=== PATIENT | female | born 1950 | race Caucasian/White ===

== ENCOUNTER → 2017-04-13 | Day surgery (SDC) | payer OTHER, MEDICARE ==
--- NOTE | 2017-04-14 13:44 | PATH ---
Cytology Non-Gynecological Report Patient Name: FARSHAD COLES [facility]. Rec. #: [id number] /Age/Gender: 1950 (Age: 66) / F Account: [id number] Location: RADIOLOGY Taken: 04/13/2017 Received: 04/13/2017 Reported: 04/14/2017 Physicians: Carl Blandon M.D. Specimen(s) Received LEFT THYROID FNA Clinical History Left thyroid nodule, 5.62 x 4.06 x 4.12 cm Final Diagnosis THYROID GLAND, LEFT LOBE, US GUIDED FINE NEEDLE ASPIRATION BIOPSY: SATISFACTORY FOR EVALUATION. NO MALIGNANT CELLS IDENTIFIED. CONSISTENT WITH NODULAR HYPERPLASIA (BETHESDA CATEGOY II, BENIGN), SEE COMMENT. Comment: The smears and the cell block show clusters of bland appearing follicular epithelial cells arranged in mixed macro- and micro-follicles and flat sheets. Occasional macrophages are present, suggestive of cystic change. Colloid is present. Electronically Signed Rio Fay M.D. Gross Description Received are four air dried smears, four smears in 95% alcohol, and 20 cc of bloody fluid in formalin. Four diff-quik stained slides, four Pap stained slides and one cell block are made.
== END | disposition home or self-care (01) ==
LOC: JRADIR 08:21
PROVIDERS: ATTEND Internal Medicine Endocrinology, Diabetes & Metabolism
PROC: 0G9K3ZX Drainage of Thyroid Gland, Percutaneous Approach, Diagnostic (ICD-10-PCS; principal; 2017-04-13)
PROC: BG44ZZZ Ultrasonography of Thyroid Gland (ICD-10-PCS; 2017-04-13)
DX: E04.1 Nontoxic single thyroid nodule (principal)
CPT/HCPCS: 76942; 88173; 88305-TC

== ENCOUNTER 2017-12-22 05:15 | Day surgery (SDC) | payer OTHER, MEDICARE ==
[2017-12-13 08:20] VITALS: BMI 31.4
[2017-12-22] MEDS ORDERED: PROPOFOL 20 ML ONE (10:05)
[2017-12-22] MEDS ORDERED: MIDAZOLAM HCL 2 MG/2 ML SINGLE DOSE VIAL ONE (10:05)
[2017-12-22] MEDS ORDERED: ROCURONIUM BROMIDE 50 MG/5 ML VIAL ONE (10:05)
[2017-12-22] MEDS ORDERED: LIDOCAINE HCL/PF 2% SDV 5ML VIAL ONE (10:06)
--- NOTE | 2017-12-22 10:10 | EKG ---
Test Reason : Blood Pressure : / mmHG Vent. Rate : 087 BPM Atrial Rate : 087 BPM P-R Int : 168 ms QRS Dur : 100 ms QT Int : 376 ms P-R-T Axes : 071 017 078 degrees QTc Int : 452 ms NORMAL SINUS RHYTHM WITH SINUS ARRHYTHMIA CANNOT RULE OUT ANTERIOR INFARCT , AGE UNDETERMINED ABNORMAL ECG NO PREVIOUS ECGS AVAILABLE Confirmed by BALJIT ACOSTA MD ([id number]) on 12/22/2017 10:10:31 AM Referred By: SURENDRA FARR Confirmed By:BALJIT ACOSTA MD
[2017-12-22] MEDS ORDERED: ONDANSETRON 4 MG/2 ML VIAL IVPUSH PRN (10:11)
[2017-12-22] MEDS ORDERED: PROMETHAZINE HCL 25 MG/1 ML VIAL IVPB PRN (10:11)
[2017-12-22] MEDS ORDERED: LACTATED RINGERS SOLUTION 1,000 ML IV SCH (10:15)
[2017-12-22] MEDS ORDERED: SUCCINYLCHOLINE CHLORIDE 200 MG/10 ML VIAL ONE (10:23)
[2017-12-22] MEDS ORDERED: ceFAZolin SODIUM 1 GM VIAL ONE (10:35)
[2017-12-22] MEDS ORDERED: DEXAMETHASONE SOD PHOSPHATE 4 MG/1 ML VIAL ONE (10:35)
[2017-12-22] MEDS ORDERED: ceFAZolin SODIUM 1 GM VIAL IVPB ONE (10:39)
[2017-12-22] MEDS ORDERED: BUPIVACAINE HCL/PF (5 MG/ML) 30 ML VIAL IJ ONE (10:40)
[2017-12-22] MEDS ORDERED: LIDOCAINE HCL 1%, 10 MG/ML (20ML VIAL) PNB ONE (10:40)
[2017-12-22] MEDS ORDERED: LIDOCAINE 1%/EPI 1:100000 (20 ML MULTI DOSE VIAL) ONE (10:50)
[2017-12-22] MEDS ORDERED: BUPIVACAINE HCL/PF 0.25% (2.5MG/ML) 10 ML VIAL ONE (10:50)
[2017-12-22] MEDS ORDERED: MICROFIBRILLAR COLLAGEN 1 GM EACH ONE (11:38)
--- NOTE | 2017-12-22 12:04 | OP ---
Operative Note - Note: Operative Date: 12/22/17 Pre-Operative Diagnosis: Thyroid nodules Operation: Left hemithyroidectomy and Right partial thyroid lobe removal Anesthesia: General Estimated Blood Loss (mls): 20 Fluid Volume Replaced (mls): 700 Operative Report Dictated: Yes
--- NOTE | 2017-12-22 12:06 | SURG ---
Surgery Public Address Technician Note Public Address Technician: Bill Portillo PA-C Date of Service: 12/22/17 Diagnosis: Thyroid nodules Procedure: Left hemithyroidectomy and Right partial thyroid lobe resection I was present for the entirety of the operative procedure. For further detail, please refer to operative report.
--- NOTE | 2017-12-22 13:46 | OP ---
DATE OF OPERATION: 12/22/2017 SURGICAL ATTENDING: Surendra Farr MD PREOPERATIVE DIAGNOSIS: Thyroid nodules. POSTOPERATIVE DIAGNOSIS: Thyroid nodules. ANESTHESIA: General endotracheal. PROCEDURE: 1. Left hemithyroidectomy and isthmusectomy. 2. Right partial thyroid lobectomy (medial nodule). DESCRIPTION OF PROCEDURE: The patient was taken into the operating room, placed in a supine position, endotracheally intubated, nerve monitors were placed, eyes were protected. Neck ultrasound was performed showing a large left thyroid mass, a moderately enlarged thyroid isthmus nodule, and a medial right thyroid lobe nodule. No lymphadenopathy was identified. The neck was then prepped and draped in the usual sterile fashion. A 6-cm horizontal skin incision was marked out. Lidocaine with epinephrine mixed with Marcaine was injected. A 6-cm incision was then made carried down through subcutaneous tissues and platysma. Subplatysmal flaps were raised superiorly and inferiorly, and flap hooks were placed for exposure. The median raphe was incised, and the strap muscles were elevated on the left side and partially on the right side. The recurrent laryngeal nerve, superior laryngeal nerve, and parathyroid glands were preserved. The superior, posterior, and inferior attachments of the thyroid gland were transected. The isthmus nodule was dissected free from the surrounding tissues with electrocautery. The isthmus was transected on the right side, and this way, the left thyroid lobe and isthmus were removed en bloc. The specimen was examined and found to have no parathyroid tissue. It was then handed off to Pathology for evaluation. The right side was examined, and a medial nodule was identified on the right lobe, which was palpable. The remainder of the lobe appeared normal. Using a LigaSure, the medial aspect of the right thyroid lobe was transected and removed from the remainder of the right thyroid lobe. This was sent to Pathology for evaluation, as well. Hemostasis was achieved with electrocautery. Valsalva maneuver was performed showing no bleeding. Avitene was placed. The wound was then closed in 3 layers. Sterile dressings were placed. The patient was then awakened, extubated, and taken to recovery in stable condition. Dr. Farr, the attending surgeon, was present throughout the entire procedure. SURENDRA FARR M.D. [id number]
[2017-12-22] MEDS ORDERED: oxyCODONE HCL 5 MG TABLET ONE (14:36)
[2017-12-22 17:34] VITALS: BP 133/67; PULSE 90; TEMP 98
--- NOTE | 2017-12-28 09:22 | PATH ---
Surgical Pathology Report Patient Name: FARSHAD COLES [facility]. Rec. #: [id number] /Age/Gender: 1950 (Age: 67) / F Account: [id number] Location: [facility] SURGICAL Taken: 12/22/2017 Received: 12/25/2017 Reported: 12/28/2017 Physicians: Gavin Lopez M.D. Specimen(s) Received A: MEDIAL RIGHT THYROID LOBE B: LEFT THYROID LOBE AND ISTHMUS Clinical History Thyroid nodule Final Diagnosis A. THYROID, MEDIAL, RIGHT LOBE, PARTIAL THYROIDECTOMY: BENIGN THYROID TISSUE WITH MULTINODULAR HYPERPLASIA AND FOCAL MICROCALCIFICATIONS. B. THYROID, LEFT LOBE AND ISTHMUS, HEMITHYROIDECTOMY: BENIGN THYROID TISSUE WITH MULTINODULAR HYPERPLASIA, HEMORRHAGE, FOCAL FIBROSIS, CYSTIC AND REACTIVE CHANGES, FEW LYMPHOID AGGREGATES, AND RARE MICROCALCIFICATIONS. Comment: The presence of lymphoid aggregates raise the possibility of Chronic lymphocytic thyroiditis. Suggest clinical, radiologic, and serologic correlation. Electronically Signed Katarina Suh M.D. Gross Description A. Received in formalin labeled "medial right thyroid lobe" is a 2 g gilliland-gunter nodular thyroid tissue measuring 2.5 x 1.3 x 1.2 cm. The specimen is unoriented. The entire specimen is inked in blue. Cut section shows a white-gunter circumscribed nodule measuring 1.3 x 2.2 cm, which abuts the inked margins. The specimen is serially and sequentially submitted in 4 cassettes. B. Received in formalin labeled "left thyroid lobe and isthmus" is a 65 g thyroid tissue. The outer surface is gunter to keith and shaggy. The isthmus measures 5 x 4 x 1.2 cm, while the left lobe measures 4.3 x 4 x 3 cm. The outer surface is inked in blue. Sectioning shows an encapsulated isthmus nodule which measures 2.2 cm in greatest dimension, which abuts the inked margin. Sectioning shows abundant large heterogenous nodules measuring up to 4.3 cm in greatest dimension. Some of which display solid gunter parenchyma, focal areas of hemorrhage and calcification. No normal thyroid parenchyma is identified. Clarity Developer sections are submitted in 19 cassettes as follows: B1-B6: Isthmic nodule, B7-B19- left thyroid. LYNETTE/12/25/2017 phuong12/25/2017
== END 2017-12-22 16:45 | disposition home or self-care (01) ==
LOC: JASU-SURG 05:15
PROVIDERS: ATTEND Surgery
PROC: 0GBH0ZZ Excision of Right Thyroid Gland Lobe, Open Approach (ICD-10-PCS; 2017-12-22)
PROC: 0GBJ0ZZ Excision of Thyroid Gland Isthmus, Open Approach (ICD-10-PCS; 2017-12-22)
PROC: 0GBG0ZZ Excision of Left Thyroid Gland Lobe, Open Approach (ICD-10-PCS; principal; 2017-12-22 10:00)
DX: E04.1 Nontoxic single thyroid nodule (principal)
CPT/HCPCS: 82962; 88307-TC; 93005; 93010; 94760

== ENCOUNTER 2021-08-17 10:18 | Emergency (ER) | payer OTHER ==
[2021-08-17] MEDS ORDERED: HEPARIN NA (PORCINE) 5,000 UNITS/ML 1ML VIAL ONE (10:30)
[2021-08-17] MEDS ORDERED: HEPARIN INFUSION - 25,000 UNITS/500 ML INFUS.BAG IVPB ONE (10:30)
[2021-08-17] MEDS ORDERED: PROPOFOL 1,000,000 MCG/100 ML VIAL ONE ×3 (10:34→21:42)
[2021-08-17] MEDS ORDERED: ASPIRIN 300 MG SUPP.RECT PR ONE (10:35)
[2021-08-17] MEDS ORDERED: ASPIRIN 300 MG SUPP.RECT RC ONE (10:35)
[2021-08-17] MEDS ORDERED: ETOMIDATE 40 MG/20 ML VIAL IVPUSH ONE (10:41)
[2021-08-17] MEDS ORDERED: ROCURONIUM BROMIDE 50 MG/5 ML VIAL IVPUSH ONE (10:41)
[2021-08-17] MEDS ORDERED: PROPOFOL 1,000,000 MCG/100 ML VIAL IVPB SCH (10:45)
[2021-08-17 11:14] LABS: BASO % 0.7 % (0-2.0); HEMATOCRIT 38.8 % (32.4-45.2); HEMOGLOBIN 11.8 GM/dL (10.7-15.3); LYMPH % 37.9 % (8-40); MCH 25.9 pg (25.7-33.7); MCHC 30.5 g/dl (32.0-36.0); MEAN CELL VOLUME 84.8 fl (80-96); MEAN PLT VOLUME 9.3 fl (7.5-11.1); MONO % 4.6 % (3.8-10.2); NEUT % 55.8 % (42.8-82.8); PLATELET COUNT 321 10^3/uL (134-434); RBC 4.57 M/mm3 (3.60-5.2); RDW 13.8 % (11.6-15.6); WHITE BLOOD COUNT 15.6 K/mm3 (4.0-10.0)
[2021-08-17 11:24] VITALS: BMI 33.7
[2021-08-17 11:38] LABS: CHLORIDE 100 mmol/L (98-107); SODIUM 136 mmol/L (136-145)
[2021-08-17 11:39] LABS: CALCIUM 8.9 mg/dL (8.5-10.1)
[2021-08-17 11:40] LABS: ANION GAP 9 MMOL/L (8-16); BLOOD UREA NITROGEN 29.9 mg/dL (7-18); CO2 27 mmol/L (21-32)
[2021-08-17 11:43] LABS: CREATININE 1.8 mg/dL (0.55-1.3); GLUCOSE,RANDOM 236 mg/dL (74-106); SGOT/AST 102 U/L (15-37); SGPT/ALT 50 U/L (13-61)
[2021-08-17 11:45] LABS: BILIRUBIN,TOTAL 0.5 mg/dL (0.2-1); TOT PROT 7.4 g/dl (6.4-8.2)
[2021-08-17 11:46] LABS: ALK PHOS 111 U/L (45-117)
[2021-08-17] MEDS ORDERED: PROPOFOL 200 MG/20 ML VIAL IVPUSH ONE (12:30)
[2021-08-17 16:11] LABS: VENOUS BASE EXCESS -1.2 mmol/L (-2-2); VENOUS O2 SATURATION 58.1 % (70-80); VENOUS PCO2 61.3 mmHg (38-52); VENOUS PH 7.262 (7.310-7.410)
[2021-08-17 18:47] VITALS: TEMP 98.6
[2021-08-17 22:30] VITALS: PULSE 77
[2021-08-17 23:13] VITALS: BP 149/67
== END 2021-08-17 22:27 | disposition short-term general hospital (02) ==
LOC: JER 10:18
PROC: 3E033GC Introduction of Other Therapeutic Substance into Peripheral Vein, Percutaneous Approach (ICD-10-PCS; principal; 2021-08-17)
PROC: 3E033GC Introduction of Other Therapeutic Substance into Peripheral Vein, Percutaneous Approach (ICD-10-PCS; 2021-08-17)
DX: I46.9 Cardiac arrest, cause unspecified (principal)
CPT/HCPCS: 36415; 70450-TC; 71045-TC-FY; 72125-TC; 73030-TC-RT-FY; 80053; 82550; 82553; 82803; 84484; 85025; 93005; 93010; 99291; 99292; C9803; U0003; U0005

== ENCOUNTER 2022-05-26 14:29 | Inpatient (IN) | payer OTHER ==
[2022-05-26] MEDS ORDERED: PIPERACILLIN/TAZOB 4.5 GM 4.5 GM in DEXTROSE 5%-WATER 100 ML IVPB ONE (15:50)
[2022-05-26] MEDS ORDERED: VANCOMYCIN 1 GM in D5W (PRE-DOCKED) 1,000 MG/250 ML IVPB ONE (15:50)
[2022-05-26] MEDS ORDERED: ACETAMINOPHEN 1000 MG/100 ML BAG IVPB ONE (15:51)
[2022-05-26] MEDS ORDERED: VANCOMYCIN/WATER FOR INJ (PEG) 1,000 MG/200 ML BAG IVPB ONE (16:13)
[2022-05-26] MEDS ORDERED: ACETAMINOPHEN INJECTION 100 ML IVPB ONE (16:13)
[2022-05-26] MEDS ORDERED: PIPERACILLIN/TAZOB 4.5 GM 4.5 GM/100 ML BAG IVPB ONE (16:13)
[2022-05-26 16:37] LABS: BASO % 0.5 % (0-2.0); EOS % 1.1 % (0-4.5); HEMATOCRIT 34.3 % (32.4-45.2); HEMOGLOBIN 11.1 GM/dL (10.7-15.3); LYMPH % 24.3 % (8-40); MCH 26.7 pg (25.7-33.7); MCHC 32.3 g/dl (32.0-36.0); MEAN CELL VOLUME 82.7 fl (80-96); MEAN PLT VOLUME 8.2 fl (7.5-11.1); MONO % 6.2 % (3.8-10.2); NEUT % 67.9 % (42.8-82.8); PLATELET COUNT 230 10^3/uL (134-434); RBC 4.14 M/mm3 (3.60-5.2); RDW 15.2 % (11.6-15.6); WHITE BLOOD COUNT 8.1 K/mm3 (4.0-10.0)
[2022-05-26 16:54] LABS: ALBUMIN 3.1 g/dl (3.4-5.0); BLOOD UREA NITROGEN 40.9 mg/dL (7-18); CALCIUM 9.4 mg/dL (8.5-10.1); MAGNESIUM 2.4 mg/dL (1.8-2.4)
[2022-05-26 16:56] LABS: CREATININE 1.9 mg/dL (0.55-1.3)
[2022-05-26 16:59] LABS: BILIRUBIN,TOTAL 0.2 mg/dL (0.2-1); TOT PROT 6.9 g/dl (6.4-8.2)
[2022-05-26 17:55] LABS: ERYTHROCYTE SEDIMENTATION RATE 78 mm/hr (0-30)
[2022-05-26] MEDS ORDERED: FUROSEMIDE 40 MG/4 ML INJECTABLE VIAL IVPUSH ONE (18:06)
[2022-05-26] MEDS ORDERED: FUROSEMIDE 40 MG/4 ML INJECTABLE VIAL ONE (18:32)
[2022-05-26] MEDS ORDERED: PIPERACILLIN/TAZOB 2.25 GM 2.25 GM in DEXTROSE 5%-WATER - 50 ML IVPB SCH (21:00)
[2022-05-26] MEDS ORDERED: PATIENT'S OWN MEDICATION (NON-FORMULARY) (Gabapentin [Neurontin] 600 MG Tablet) PO SCH (22:00)
[2022-05-26] MEDS: INSULIN SLIDING SCALE (NOVOLOG) 1 VIAL SQ SCH (22:26)
[2022-05-26] MEDS: hydrALAZINE HCL 50 MG TABLET (FP) PO SCH (23:12)
[2022-05-26] MEDS: GABAPENTIN 300 MG CAPSULE PO SCH (23:15)
[2022-05-27] MEDS: PIPERACILLIN/TAZOB 2.25 GM 2.25 GM in DEXTROSE 5%-WATER - 50 ML IVPB SCH ×2 (02:11→10:02)
[2022-05-27] MEDS ORDERED: PIPERACILLIN/TAZOB 2.25 GM 2.25 GM in DEXTROSE 5%-WATER - 50 ML IVPB SCH (03:00)
[2022-05-27] MEDS: hydrALAZINE HCL 50 MG TABLET (FP) PO SCH ×3 (06:14→21:45)
[2022-05-27] MEDS: GABAPENTIN 300 MG CAPSULE PO SCH ×3 (06:14→21:46)
[2022-05-27] MEDS ORDERED: INSULIN (NOVOLOG) ASPART 100 UNITS/ML 10ML VIAL ONE ×3 (07:25→11:51)
[2022-05-27] MEDS: INSULIN SLIDING SCALE (NOVOLOG) 1 VIAL SQ SCH ×5 (07:38→22:24)
[2022-05-27] MEDS: LEVOTHYROXINE NA 25 MCG TABLET (FP) PO SCH (07:39)
[2022-05-27] MEDS: CARVEDILOL 25 MG TABLET (FP) PO SCH ×2 (10:01→21:46)
[2022-05-27] MEDS: TORSEMIDE 20 MG TABLET (FP) PO SCH (10:01)
[2022-05-27] MEDS: cloNIDine HCL 0.1 MG TABLET PO SCH ×2 (10:01→21:45)
[2022-05-27] MEDS: PATIENT'S OWN MEDICATION (NON-FORMULARY) (Empagliflozin [Jardiance] 10 MG Tablet) PO SCH (10:10)
[2022-05-27 10:21] LABS: BASO % 0.5 % (0-2.0); EOS % 1.4 % (0-4.5); HEMATOCRIT 31.9 % (32.4-45.2); HEMOGLOBIN 10.3 GM/dL (10.7-15.3); LYMPH % 28.9 % (8-40); MCH 26.7 pg (25.7-33.7); MCHC 32.3 g/dl (32.0-36.0); MEAN CELL VOLUME 82.7 fl (80-96); MONO % 7.2 % (3.8-10.2); PLATELET COUNT 219 10^3/uL (134-434); RBC 3.85 M/mm3 (3.60-5.2); RDW 15.2 % (11.6-15.6); WHITE BLOOD COUNT 7.1 K/mm3 (4.0-10.0)
[2022-05-27 10:46] LABS: CALCIUM 8.9 mg/dL (8.5-10.1)
[2022-05-27 10:48] LABS: BLOOD UREA NITROGEN 42.3 mg/dL (7-18)
[2022-05-27] MEDS: INSULIN DEGLUDEC 100 UNIT/ML SQ SCH ×2 (11:50→22:23)
[2022-05-27] MEDS: CEFAZOLIN SODIUM 2 GM in DEXTROSE 5%-WATER 100 ML IVPB SCH (21:46)
[2022-05-27] MEDS: INSULIN (LEVEMIR) 100 UNITS/ML UNITS SQ SCH (22:00)
[2022-05-28] MEDS: INSULIN SLIDING SCALE (NOVOLOG) 1 VIAL SQ SCH ×4 (06:42→21:07)
[2022-05-28] MEDS: hydrALAZINE HCL 50 MG TABLET (FP) PO SCH ×3 (06:43→21:05)
[2022-05-28] MEDS: LEVOTHYROXINE NA 25 MCG TABLET (FP) PO SCH (06:44)
[2022-05-28] MEDS: GABAPENTIN 300 MG CAPSULE PO SCH ×3 (06:44→21:06)
[2022-05-28 09:00] LABS: BASO % 0.2 % (0-2.0); EOS % 1.3 % (0-4.5); HEMATOCRIT 32.1 % (32.4-45.2); HEMOGLOBIN 10.2 GM/dL (10.7-15.3); LYMPH % 24.4 % (8-40); MCH 26.2 pg (25.7-33.7); MCHC 31.8 g/dl (32.0-36.0); MEAN CELL VOLUME 82.3 fl (80-96); MEAN PLT VOLUME 8.1 fl (7.5-11.1); NEUT % 67.1 % (42.8-82.8); PLATELET COUNT 219 10^3/uL (134-434); RDW 14.6 % (11.6-15.6); WHITE BLOOD COUNT 7.7 K/mm3 (4.0-10.0)
[2022-05-28] MEDS ORDERED: CEFAZOLIN SODIUM 2 GM VIAL ONE (09:58)
[2022-05-28] MEDS: TORSEMIDE 20 MG TABLET (FP) PO SCH (10:04)
[2022-05-28] MEDS: CEFAZOLIN SODIUM 2 GM in DEXTROSE 5%-WATER 100 ML IVPB SCH ×2 (10:04→21:08)
[2022-05-28] MEDS: cloNIDine HCL 0.1 MG TABLET PO SCH ×2 (10:05→21:05)
[2022-05-28] MEDS: CARVEDILOL 25 MG TABLET (FP) PO SCH ×2 (10:05→21:05)
[2022-05-28] MEDS: PATIENT'S OWN MEDICATION (NON-FORMULARY) (Empagliflozin [Jardiance] 10 MG Tablet) PO SCH (10:05)
[2022-05-28 10:07] LABS: CALCIUM 9.5 mg/dL (8.5-10.1)
[2022-05-28] MEDS: INSULIN DEGLUDEC 100 UNIT/ML SQ SCH ×2 (10:07→21:26)
[2022-05-28 10:08] LABS: ALBUMIN 2.9 g/dl (3.4-5.0); BLOOD UREA NITROGEN 46.6 mg/dL (7-18)
[2022-05-28 10:11] LABS: CREATININE 2.1 mg/dL (0.55-1.3)
[2022-05-28 10:12] LABS: BILIRUBIN,TOTAL 0.2 mg/dL (0.2-1); TOT PROT 6.3 g/dl (6.4-8.2)
[2022-05-28] MEDS: INSULIN (LEVEMIR) 100 UNITS/ML UNITS SQ SCH ×3 (11:27→21:06)
[2022-05-28] MEDS ORDERED: INSULIN (NOVOLOG) ASPART 100 UNITS/ML 10ML VIAL ONE ×2 (17:08→20:50)
[2022-05-29] MEDS: hydrALAZINE HCL 50 MG TABLET (FP) PO SCH ×3 (05:46→21:27)
[2022-05-29] MEDS: GABAPENTIN 300 MG CAPSULE PO SCH (05:47)
[2022-05-29] MEDS: LEVOTHYROXINE NA 25 MCG TABLET (FP) PO SCH (06:15)
[2022-05-29] MEDS: INSULIN (LEVEMIR) 100 UNITS/ML UNITS SQ SCH ×2 (06:15→21:34)
[2022-05-29] MEDS: INSULIN SLIDING SCALE (NOVOLOG) 1 VIAL SQ SCH ×4 (06:15→21:43)
[2022-05-29] MEDS ORDERED: INSULIN (NOVOLOG) ASPART 100 UNITS/ML 10ML VIAL ONE (06:18)
[2022-05-29] MEDS: cloNIDine HCL 0.1 MG TABLET PO SCH ×2 (10:51→21:26)
[2022-05-29] MEDS: CARVEDILOL 25 MG TABLET (FP) PO SCH ×2 (10:51→21:27)
[2022-05-29] MEDS: INSULIN DEGLUDEC 100 UNIT/ML SQ SCH ×2 (10:52→21:31)
[2022-05-29] MEDS: TORSEMIDE 20 MG TABLET (FP) PO SCH (10:52)
[2022-05-29] MEDS: PATIENT'S OWN MEDICATION (NON-FORMULARY) (Empagliflozin [Jardiance] 10 MG Tablet) PO SCH (10:52)
[2022-05-29] MEDS: CEFAZOLIN SODIUM 2 GM in DEXTROSE 5%-WATER 100 ML IVPB SCH ×2 (10:53→21:27)
[2022-05-29] MEDS: MUPIROCIN CA 2% TOPICAL CREAM 15 GM TUBE TP SCH ×2 (14:06→21:27)
[2022-05-29] MEDS: COLLAGENASE CLOSTRIDIUM HIST. 30 GRAMS TUBE TP SCH (14:06)
[2022-05-29] MEDS: GABAPENTIN 100 MG CAPSULE PO SCH (21:27)
[2022-05-29] MEDS ORDERED: GABAPENTIN 100 MG CAPSULE PO SCH (22:00)
[2022-05-29] MEDS: INSULIN (NOVOLOG) ASPART 100 UNITS/ML 10ML VIAL SQ SCH (22:25)
[2022-05-30] MEDS: INSULIN (NOVOLOG) ASPART 100 UNITS/ML 10ML VIAL SQ SCH ×4 (06:05→21:17)
[2022-05-30] MEDS: INSULIN (LEVEMIR) 100 UNITS/ML UNITS SQ SCH ×2 (06:06→21:17)
[2022-05-30] MEDS: hydrALAZINE HCL 50 MG TABLET (FP) PO SCH ×3 (06:07→21:16)
[2022-05-30] MEDS: LEVOTHYROXINE NA 25 MCG TABLET (FP) PO SCH (06:12)
[2022-05-30] MEDS: TORSEMIDE 20 MG TABLET (FP) PO SCH (09:38)
[2022-05-30] MEDS: CARVEDILOL 25 MG TABLET (FP) PO SCH ×2 (09:38→21:16)
[2022-05-30] MEDS: CEFAZOLIN SODIUM 2 GM in DEXTROSE 5%-WATER 100 ML IVPB SCH (09:44)
[2022-05-30] MEDS: cloNIDine HCL 0.1 MG TABLET PO SCH ×2 (09:45→21:17)
[2022-05-30] MEDS: PATIENT'S OWN MEDICATION (NON-FORMULARY) (Empagliflozin [Jardiance] 10 MG Tablet) PO SCH (09:46)
[2022-05-30] MEDS: INSULIN DEGLUDEC 100 UNIT/ML SQ SCH ×2 (09:51→21:17)
[2022-05-30] MEDS: MUPIROCIN CA 2% TOPICAL CREAM 15 GM TUBE TP SCH ×2 (09:52→21:18)
[2022-05-30] MEDS: COLLAGENASE CLOSTRIDIUM HIST. 30 GRAMS TUBE TP SCH (09:52)
[2022-05-30 10:54] LABS: ALBUMIN 3.1 g/dl (3.4-5.0); BLOOD UREA NITROGEN 42.6 mg/dL (7-18)
[2022-05-30 10:57] LABS: BILIRUBIN,TOTAL 0.3 mg/dL (0.2-1); TOT PROT 6.8 g/dl (6.4-8.2)
[2022-05-30] MEDS ORDERED: INSULIN (NOVOLOG) ASPART 100 UNITS/ML 10ML VIAL ONE ×2 (11:17→16:36)
[2022-05-30] MEDS: CLINDAMYCIN 600MG PREMIX IVPB 600 MG/50 ML BAG IVPB SCH (17:20)
[2022-05-30] MEDS: GABAPENTIN 100 MG CAPSULE PO SCH (21:16)
[2022-05-30] MEDS: CEFEPIME 1 GM in DEXTROSE 5%-WATER 100 ML IVPB SCH (21:18)
[2022-05-31] MEDS: CLINDAMYCIN 600MG PREMIX IVPB 600 MG/50 ML BAG IVPB SCH ×3 (01:17→17:07)
[2022-05-31] MEDS: hydrALAZINE HCL 50 MG TABLET (FP) PO SCH ×3 (05:45→21:01)
[2022-05-31] MEDS: LEVOTHYROXINE NA 25 MCG TABLET (FP) PO SCH (06:31)
[2022-05-31] MEDS: INSULIN (LEVEMIR) 100 UNITS/ML UNITS SQ SCH ×2 (06:32→21:01)
[2022-05-31] MEDS: INSULIN (NOVOLOG) ASPART 100 UNITS/ML 10ML VIAL SQ SCH ×4 (06:32→21:01)
[2022-05-31] MEDS: TORSEMIDE 20 MG TABLET (FP) PO SCH (09:55)
[2022-05-31] MEDS: CARVEDILOL 25 MG TABLET (FP) PO SCH ×2 (09:55→21:07)
[2022-05-31] MEDS: cloNIDine HCL 0.1 MG TABLET PO SCH ×2 (09:55→21:08)
[2022-05-31] MEDS: CEFEPIME 1 GM in DEXTROSE 5%-WATER 100 ML IVPB SCH ×2 (09:56→21:02)
[2022-05-31] MEDS: INSULIN DEGLUDEC 100 UNIT/ML SQ SCH ×2 (09:56→21:01)
[2022-05-31] MEDS: PATIENT'S OWN MEDICATION (NON-FORMULARY) (Empagliflozin [Jardiance] 10 MG Tablet) PO SCH (09:57)
[2022-05-31] MEDS ORDERED: INSULIN (NOVOLOG) ASPART 100 UNITS/ML 10ML VIAL ONE (11:37)
[2022-05-31] MEDS: MUPIROCIN CA 2% TOPICAL CREAM 15 GM TUBE TP SCH ×2 (13:37→21:01)
[2022-05-31] MEDS: COLLAGENASE CLOSTRIDIUM HIST. 30 GRAMS TUBE TP SCH (13:37)
[2022-05-31] MEDS: GABAPENTIN 100 MG CAPSULE PO SCH (21:01)
[2022-06-01] MEDS: CLINDAMYCIN 600MG PREMIX IVPB 600 MG/50 ML BAG IVPB SCH ×3 (01:23→17:50)
[2022-06-01] MEDS: hydrALAZINE HCL 50 MG TABLET (FP) PO SCH ×3 (05:51→21:12)
[2022-06-01] MEDS: LEVOTHYROXINE NA 25 MCG TABLET (FP) PO SCH (06:21)
[2022-06-01] MEDS: INSULIN (LEVEMIR) 100 UNITS/ML UNITS SQ SCH ×2 (06:21→21:12)
[2022-06-01] MEDS: INSULIN (NOVOLOG) ASPART 100 UNITS/ML 10ML VIAL SQ SCH ×4 (06:22→21:15)
[2022-06-01 09:23] LABS: ALBUMIN 3.1 g/dl (3.4-5.0); CALCIUM 9.9 mg/dL (8.5-10.1)
[2022-06-01 09:24] LABS: BLOOD UREA NITROGEN 38.7 mg/dL (7-18)
[2022-06-01 09:27] LABS: CREATININE 1.9 mg/dL (0.55-1.3)
[2022-06-01 09:28] LABS: BILIRUBIN,TOTAL 0.3 mg/dL (0.2-1)
[2022-06-01] MEDS: cloNIDine HCL 0.1 MG TABLET PO SCH ×2 (10:45→21:12)
[2022-06-01] MEDS: MUPIROCIN CA 2% TOPICAL CREAM 15 GM TUBE TP SCH ×2 (10:45→21:13)
[2022-06-01] MEDS: CARVEDILOL 25 MG TABLET (FP) PO SCH ×2 (10:46→21:13)
[2022-06-01] MEDS: TORSEMIDE 20 MG TABLET (FP) PO SCH (10:47)
[2022-06-01] MEDS: PATIENT'S OWN MEDICATION (NON-FORMULARY) (Empagliflozin [Jardiance] 10 MG Tablet) PO SCH (10:48)
[2022-06-01] MEDS: INSULIN DEGLUDEC 100 UNIT/ML SQ SCH ×2 (10:49→21:13)
[2022-06-01] MEDS: COLLAGENASE CLOSTRIDIUM HIST. 30 GRAMS TUBE TP SCH (10:51)
[2022-06-01] MEDS: CEFEPIME 1 GM in DEXTROSE 5%-WATER 100 ML IVPB SCH ×2 (12:20→21:22)
[2022-06-01] MEDS ORDERED: INSULIN (NOVOLOG) ASPART 100 UNITS/ML 10ML VIAL ONE (17:11)
[2022-06-01] MEDS: GABAPENTIN 100 MG CAPSULE PO SCH (21:13)
[2022-06-02] MEDS: CLINDAMYCIN 600MG PREMIX IVPB 600 MG/50 ML BAG IVPB SCH ×3 (01:33→17:12)
[2022-06-02] MEDS: hydrALAZINE HCL 50 MG TABLET (FP) PO SCH ×3 (05:56→21:28)
[2022-06-02] MEDS: INSULIN (NOVOLOG) ASPART 100 UNITS/ML 10ML VIAL SQ SCH ×4 (06:10→21:53)
[2022-06-02] MEDS: LEVOTHYROXINE NA 25 MCG TABLET (FP) PO SCH (06:11)
[2022-06-02] MEDS: INSULIN (LEVEMIR) 100 UNITS/ML UNITS SQ SCH ×2 (06:11→21:29)
[2022-06-02] MEDS: cloNIDine HCL 0.1 MG TABLET PO SCH ×2 (09:56→21:34)
[2022-06-02] MEDS: MUPIROCIN CA 2% TOPICAL CREAM 15 GM TUBE TP SCH ×2 (09:56→21:32)
[2022-06-02] MEDS: COLLAGENASE CLOSTRIDIUM HIST. 30 GRAMS TUBE TP SCH (09:57)
[2022-06-02] MEDS: TORSEMIDE 20 MG TABLET (FP) PO SCH (09:57)
[2022-06-02] MEDS: CARVEDILOL 25 MG TABLET (FP) PO SCH ×2 (09:57→21:27)
[2022-06-02] MEDS: INSULIN DEGLUDEC 100 UNIT/ML SQ SCH ×2 (10:10→21:30)
[2022-06-02] MEDS: CEFEPIME 1 GM in DEXTROSE 5%-WATER 100 ML IVPB SCH ×2 (11:14→21:28)
[2022-06-02 11:28] LABS: ALBUMIN 2.7 g/dl (3.4-5.0); BLOOD UREA NITROGEN 41.6 mg/dL (7-18); CALCIUM 8.6 mg/dL (8.5-10.1)
[2022-06-02 11:32] LABS: BILIRUBIN,TOTAL 0.3 mg/dL (0.2-1); TOT PROT 6.2 g/dl (6.4-8.2)
[2022-06-02] MEDS ORDERED: TORSEMIDE 20 MG TABLET (FP) PO ONE (13:25)
[2022-06-02 14:37] VITALS: BMI 37.8
[2022-06-02] MEDS ORDERED: INSULIN (NOVOLOG) ASPART 100 UNITS/ML 10ML VIAL ONE (17:09)
[2022-06-02] MEDS: GABAPENTIN 100 MG CAPSULE PO SCH (21:28)
[2022-06-03] MEDS: CLINDAMYCIN 600MG PREMIX IVPB 600 MG/50 ML BAG IVPB SCH ×2 (01:37→09:47)
[2022-06-03] MEDS: hydrALAZINE HCL 50 MG TABLET (FP) PO SCH ×3 (05:59→21:00)
[2022-06-03] MEDS: INSULIN (NOVOLOG) ASPART 100 UNITS/ML 10ML VIAL SQ SCH ×4 (06:00→21:00)
[2022-06-03] MEDS: LEVOTHYROXINE NA 25 MCG TABLET (FP) PO SCH (06:00)
[2022-06-03] MEDS: INSULIN (LEVEMIR) 100 UNITS/ML UNITS SQ SCH ×2 (06:00→21:00)
[2022-06-03] MEDS: cloNIDine HCL 0.1 MG TABLET PO SCH ×2 (09:47→21:00)
[2022-06-03] MEDS: CEFEPIME 1 GM in DEXTROSE 5%-WATER 100 ML IVPB SCH ×2 (09:47→21:01)
[2022-06-03] MEDS: CARVEDILOL 25 MG TABLET (FP) PO SCH ×2 (09:47→21:00)
[2022-06-03] MEDS: TORSEMIDE 20 MG TABLET (FP) PO SCH (09:47)
[2022-06-03] MEDS: COLLAGENASE CLOSTRIDIUM HIST. 30 GRAMS TUBE TP SCH (09:47)
[2022-06-03] MEDS: MUPIROCIN CA 2% TOPICAL CREAM 15 GM TUBE TP SCH (09:47)
[2022-06-03] MEDS: INSULIN DEGLUDEC 100 UNIT/ML SQ SCH ×2 (09:51→21:00)
[2022-06-03 09:58] LABS: BASO % 0.5 % (0-2.0); EOS % 0.9 % (0-4.5); HEMATOCRIT 31.4 % (32.4-45.2); HEMOGLOBIN 10.4 GM/dL (10.7-15.3); LYMPH % 29.7 % (8-40); MCH 27.1 pg (25.7-33.7); MCHC 33.1 g/dl (32.0-36.0); MEAN CELL VOLUME 81.8 fl (80-96); MEAN PLT VOLUME 7.9 fl (7.5-11.1); MONO % 8.4 % (3.8-10.2); NEUT % 60.5 % (42.8-82.8); PLATELET COUNT 236 10^3/uL (134-434); RBC 3.84 M/mm3 (3.60-5.2); WHITE BLOOD COUNT 8.1 K/mm3 (4.0-10.0)
[2022-06-03 11:08] LABS: ALBUMIN 2.9 g/dl (3.4-5.0); BLOOD UREA NITROGEN 46.3 mg/dL (7-18)
[2022-06-03 11:13] LABS: BILIRUBIN,TOTAL 0.3 mg/dL (0.2-1); TOT PROT 6.8 g/dl (6.4-8.2)
[2022-06-03] MEDS ORDERED: VANCOMYCIN/WATER FOR INJ (PEG) 1,000 MG/200 ML BAG IVPB ONE (15:00)
[2022-06-03] MEDS: HYDROCORTISONE 0.5% TOPICAL CREAM 30 GM TUBE TP SCH (16:00)
[2022-06-03] MEDS: GABAPENTIN 100 MG CAPSULE PO SCH (21:00)
[2022-06-04] MEDS: hydrALAZINE HCL 50 MG TABLET (FP) PO SCH ×3 (05:56→21:51)
[2022-06-04] MEDS: INSULIN (LEVEMIR) 100 UNITS/ML UNITS SQ SCH ×2 (06:14→21:58)
[2022-06-04] MEDS: LEVOTHYROXINE NA 25 MCG TABLET (FP) PO SCH (06:14)
[2022-06-04] MEDS: INSULIN (NOVOLOG) ASPART 100 UNITS/ML 10ML VIAL SQ SCH ×4 (06:14→22:02)
[2022-06-04 09:35] LABS: HEMOGLOBIN 10.8 GM/dL (10.7-15.3); MCHC 31.7 g/dl (32.0-36.0); MEAN PLT VOLUME 8.4 fl (7.5-11.1); PLATELET COUNT 266 10^3/uL (134-434); RBC 4.15 M/mm3 (3.60-5.2); RDW 14.9 % (11.6-15.6); WHITE BLOOD COUNT 8.3 K/mm3 (4.0-10.0)
[2022-06-04] MEDS: TORSEMIDE 20 MG TABLET (FP) PO SCH (09:39)
[2022-06-04] MEDS: CARVEDILOL 25 MG TABLET (FP) PO SCH ×2 (09:39→21:51)
[2022-06-04] MEDS: CEFEPIME 1 GM in DEXTROSE 5%-WATER 100 ML IVPB SCH ×2 (09:39→21:51)
[2022-06-04] MEDS: cloNIDine HCL 0.1 MG TABLET PO SCH ×2 (09:39→21:51)
[2022-06-04] MEDS: HYDROCORTISONE 0.5% TOPICAL CREAM 30 GM TUBE TP SCH (09:39)
[2022-06-04] MEDS: COLLAGENASE CLOSTRIDIUM HIST. 30 GRAMS TUBE TP SCH (09:40)
[2022-06-04] MEDS: INSULIN DEGLUDEC 100 UNIT/ML SQ SCH ×2 (09:40→22:02)
[2022-06-04 10:09] LABS: CALCIUM 9.3 mg/dL (8.5-10.1)
[2022-06-04 10:13] LABS: CREATININE 2.2 mg/dL (0.55-1.3)
[2022-06-04] MEDS ORDERED: VANCOMYCIN/WATER FOR INJ (PEG) 1,000 MG/200 ML BAG IVPB ONE (13:25)
[2022-06-04] MEDS: GABAPENTIN 100 MG CAPSULE PO SCH (21:51)
[2022-06-05] MEDS: LEVOTHYROXINE NA 25 MCG TABLET (FP) PO SCH (06:40)
[2022-06-05] MEDS: hydrALAZINE HCL 50 MG TABLET (FP) PO SCH ×3 (06:40→21:12)
[2022-06-05] MEDS: INSULIN (NOVOLOG) ASPART 100 UNITS/ML 10ML VIAL SQ SCH ×4 (06:41→21:30)
[2022-06-05] MEDS: INSULIN (LEVEMIR) 100 UNITS/ML UNITS SQ SCH ×2 (06:41→21:28)
[2022-06-05] MEDS: CEFEPIME 1 GM in DEXTROSE 5%-WATER 100 ML IVPB SCH ×2 (09:04→21:12)
[2022-06-05] MEDS: cloNIDine HCL 0.1 MG TABLET PO SCH ×2 (09:04→21:12)
[2022-06-05] MEDS: TORSEMIDE 20 MG TABLET (FP) PO SCH (09:04)
[2022-06-05] MEDS: CARVEDILOL 25 MG TABLET (FP) PO SCH ×2 (09:04→21:12)
[2022-06-05] MEDS: INSULIN DEGLUDEC 100 UNIT/ML SQ SCH ×2 (09:04→21:32)
[2022-06-05] MEDS: HYDROCORTISONE 0.5% TOPICAL CREAM 30 GM TUBE TP SCH (09:05)
[2022-06-05] MEDS: COLLAGENASE CLOSTRIDIUM HIST. 30 GRAMS TUBE TP SCH (09:06)
[2022-06-05] MEDS ORDERED: INSULIN (NOVOLOG) ASPART 100 UNITS/ML 10ML VIAL ONE (16:40)
[2022-06-05] MEDS ORDERED: ACETAMINOPHEN 325 MG TABLET (FP) PO PRN (19:43)
[2022-06-05] MEDS: GABAPENTIN 100 MG CAPSULE PO SCH (21:12)
[2022-06-06] MEDS: INSULIN (LEVEMIR) 100 UNITS/ML UNITS SQ SCH ×2 (06:01→21:35)
[2022-06-06] MEDS: INSULIN (NOVOLOG) ASPART 100 UNITS/ML 10ML VIAL SQ SCH ×4 (06:01→21:36)
[2022-06-06] MEDS: hydrALAZINE HCL 50 MG TABLET (FP) PO SCH ×3 (06:01→21:36)
[2022-06-06] MEDS: LEVOTHYROXINE NA 25 MCG TABLET (FP) PO SCH (06:27)
[2022-06-06] MEDS: HYDROCORTISONE 0.5% TOPICAL CREAM 30 GM TUBE TP SCH (09:47)
[2022-06-06] MEDS: cloNIDine HCL 0.1 MG TABLET PO SCH ×2 (09:47→21:37)
[2022-06-06] MEDS: CARVEDILOL 25 MG TABLET (FP) PO SCH ×2 (09:47→21:36)
[2022-06-06] MEDS: TORSEMIDE 20 MG TABLET (FP) PO SCH (09:47)
[2022-06-06] MEDS: CEFEPIME 1 GM in DEXTROSE 5%-WATER 100 ML IVPB SCH ×2 (09:47→21:34)
[2022-06-06] MEDS: COLLAGENASE CLOSTRIDIUM HIST. 30 GRAMS TUBE TP SCH (09:47)
[2022-06-06] MEDS: INSULIN DEGLUDEC 100 UNIT/ML SQ SCH ×2 (09:51→21:37)
[2022-06-06] MEDS ORDERED: VANCOMYCIN/WATER FOR INJ (PEG) 1,000 MG/200 ML BAG IVPB ONE (13:59)
[2022-06-06] MEDS: GABAPENTIN 100 MG CAPSULE PO SCH (21:37)
[2022-06-07] MEDS: LEVOTHYROXINE NA 25 MCG TABLET (FP) PO SCH (06:09)
[2022-06-07] MEDS: hydrALAZINE HCL 50 MG TABLET (FP) PO SCH ×3 (06:09→22:36)
[2022-06-07] MEDS: INSULIN (LEVEMIR) 100 UNITS/ML UNITS SQ SCH ×2 (06:11→22:42)
[2022-06-07] MEDS: INSULIN (NOVOLOG) ASPART 100 UNITS/ML 10ML VIAL SQ SCH ×4 (06:12→22:43)
[2022-06-07] MEDS: cloNIDine HCL 0.1 MG TABLET PO SCH ×2 (09:48→22:36)
[2022-06-07] MEDS: CARVEDILOL 25 MG TABLET (FP) PO SCH ×2 (09:49→22:37)
[2022-06-07] MEDS: TORSEMIDE 20 MG TABLET (FP) PO SCH (09:49)
[2022-06-07] MEDS: CEFEPIME 1 GM in DEXTROSE 5%-WATER 100 ML IVPB SCH ×2 (09:50→22:44)
[2022-06-07] MEDS: INSULIN DEGLUDEC 100 UNIT/ML SQ SCH ×2 (11:10→22:43)
[2022-06-07 12:03] LABS: HEMATOCRIT 32.2 % (32.4-45.2); HEMOGLOBIN 10.4 GM/dL (10.7-15.3); MCH 26.5 pg (25.7-33.7); MCHC 32.4 g/dl (32.0-36.0); MEAN CELL VOLUME 81.8 fl (80-96); MEAN PLT VOLUME 8.8 fl (7.5-11.1); PLATELET COUNT 235 10^3/uL (134-434); RBC 3.94 M/mm3 (3.60-5.2); RDW 14.8 % (11.6-15.6); WHITE BLOOD COUNT 8.4 K/mm3 (4.0-10.0)
[2022-06-07 13:07] LABS: ALBUMIN 2.8 g/dl (3.4-5.0); CALCIUM 8.9 mg/dL (8.5-10.1); MAGNESIUM 2.4 mg/dL (1.8-2.4)
[2022-06-07 13:12] LABS: BILIRUBIN,TOTAL 0.4 mg/dL (0.2-1); TOT PROT 6.7 g/dl (6.4-8.2)
[2022-06-07] MEDS: HYDROCORTISONE 0.5% TOPICAL CREAM 30 GM TUBE TP SCH (14:59)
[2022-06-07] MEDS: COLLAGENASE CLOSTRIDIUM HIST. 30 GRAMS TUBE TP SCH (14:59)
[2022-06-07 16:08] LABS: ATYPICAL pANCA <1:20 titer (Neg:<1:20); C-ANCA <1:20 titer (Neg:<1:20)
[2022-06-07] MEDS ORDERED: INSULIN (NOVOLOG) ASPART 100 UNITS/ML 10ML VIAL ONE (16:45)
[2022-06-07] MEDS: GABAPENTIN 100 MG CAPSULE PO SCH (22:37)
[2022-06-08 05:13] VITALS: RESP 18
[2022-06-08] MEDS: LEVOTHYROXINE NA 25 MCG TABLET (FP) PO SCH (06:21)
[2022-06-08] MEDS: INSULIN (LEVEMIR) 100 UNITS/ML UNITS SQ SCH (06:21)
[2022-06-08] MEDS: hydrALAZINE HCL 50 MG TABLET (FP) PO SCH (06:21)
[2022-06-08] MEDS: INSULIN (NOVOLOG) ASPART 100 UNITS/ML 10ML VIAL SQ SCH ×2 (06:21→12:14)
[2022-06-08] MEDS: CARVEDILOL 25 MG TABLET (FP) PO SCH (09:54)
[2022-06-08] MEDS: cloNIDine HCL 0.1 MG TABLET PO SCH (09:54)
[2022-06-08] MEDS: TORSEMIDE 20 MG TABLET (FP) PO SCH (09:54)
[2022-06-08] MEDS: CEFEPIME 1 GM in DEXTROSE 5%-WATER 100 ML IVPB SCH (09:55)
[2022-06-08] MEDS: INSULIN DEGLUDEC 100 UNIT/ML SQ SCH (10:03)
[2022-06-08] MEDS: HYDROCORTISONE 0.5% TOPICAL CREAM 30 GM TUBE TP SCH (10:05)
[2022-06-08] MEDS: COLLAGENASE CLOSTRIDIUM HIST. 30 GRAMS TUBE TP SCH (10:05)
[2022-06-08 11:29] VITALS: BP 155/84; PULSE 75; TEMP 98
== END 2022-06-08 14:14 | disposition home health service (06) | DRG 603 ==
LOC: JER 14:29 → JERBED 15:51 → J6S 19:11 → OBSVTOIN 05-27 11:34
PROVIDERS: ADMIT Internal Medicine; ATTEND Family Medicine
DX: L88 Pyoderma gangrenosum (principal); L97.919 Non-pressure chronic ulcer of unspecified part of right lower leg with unspecified severity; L97.929 Non-pressure chronic ulcer of unspecified part of left lower leg with unspecified severity; I13.0 Hypertensive heart and chronic kidney disease with heart failure and stage 1 through stage 4 chronic kidney disease, or unspecified chronic kidney disease; N17.9 Acute kidney failure, unspecified; I83.019 Varicose veins of right lower extremity with ulcer of unspecified site; L03.115 Cellulitis of right lower limb; L03.116 Cellulitis of left lower limb; I83.029 Varicose veins of left lower extremity with ulcer of unspecified site; E11.22 Type 2 diabetes mellitus with diabetic chronic kidney disease; E11.40 Type 2 diabetes mellitus with diabetic neuropathy, unspecified; E03.9 Hypothyroidism, unspecified; Z68.37 Body mass index [BMI] 37.0-37.9, adult; E66.9 Obesity, unspecified; N18.9 Chronic kidney disease, unspecified; E78.5 Hyperlipidemia, unspecified; I50.9 Heart failure, unspecified
CPT/HCPCS: 36415; 71045-TC-FY; 73590-TC-LT-FY; 73590-TC-RT-FY; 80048; 80053; 82962; 83520; 83735; 84155; 84165; 84484; 85025; 85027; 85651; 86038; 86140; 86256; 86431; 86705; 86803; 87040; 87340; 87517; 87522; 93005; 93010; 97116-GP; 97161-GP; 99285-25; C9803-CS; G0378; G0480; U0003; U0005

== ENCOUNTER 2022-07-23 21:12 | Observation (INO) | payer OTHER ==
[2022-07-23 21:26] VITALS: BMI 40.3
[2022-07-23] MEDS ORDERED: LABETALOL HCL 5 MG/1 ML (100MG/20 ML VIAL) IVPUSH ONE (21:53)
[2022-07-23 22:32] LABS: BASO % 0.8 % (0-2.0); EOS % 0.7 % (0-4.5); HEMATOCRIT 31.7 % (32.4-45.2); HEMOGLOBIN 10.2 GM/dL (10.7-15.3); LYMPH % 26.9 % (8-40); MCH 26.6 pg (25.7-33.7); MCHC 32.2 g/dl (32.0-36.0); MEAN CELL VOLUME 82.6 fl (80-96); MEAN PLT VOLUME 8.3 fl (7.5-11.1); MONO % 7.9 % (3.8-10.2); NEUT % 63.7 % (42.8-82.8); PLATELET COUNT 246 10^3/uL (134-434); RBC 3.84 M/mm3 (3.60-5.2); RDW 14.9 % (11.6-15.6); WHITE BLOOD COUNT 8.9 K/mm3 (4.0-10.0)
[2022-07-23 22:45] LABS: INR 0.94 (0.83-1.09); PROTHROMBIN TIME (PATIENT) 10.8 SEC (9.7-13.0)
[2022-07-23 22:48] LABS: ACTIVATED PTT 33.6 SECONDS (25.2-36.5)
[2022-07-23 23:04] LABS: CALCIUM 8.8 mg/dL (8.5-10.1)
[2022-07-23 23:05] LABS: ALBUMIN 3.2 g/dl (3.4-5.0); BLOOD UREA NITROGEN 31.3 mg/dL (7-18)
[2022-07-23 23:10] LABS: BILIRUBIN,TOTAL 0.3 mg/dL (0.2-1); TOT PROT 6.9 g/dl (6.4-8.2)
[2022-07-23] MEDS ORDERED: LABETALOL HCL 5 MG/1 ML (100MG/20 ML VIAL) ONE ×2 (23:19→23:47)
[2022-07-23] MEDS ORDERED: ASPIRIN 81 MG CHEWABLE TABLETS PO ONE (23:54)
[2022-07-24] MEDS ORDERED: ASPIRIN 325 MG TABLET PO ONE (00:23)
[2022-07-24] MEDS ORDERED: ASPIRIN 325 MG TABLET ONE (00:25)
[2022-07-24] MEDS ORDERED: DOCUSATE SODIUM 100 MG CAPSULE (FP) PO PRN (04:53)
[2022-07-24] MEDS ORDERED: ACETAMINOPHEN 325 MG TABLET (FP) PO PRN (04:53)
[2022-07-24] MEDS ORDERED: hydrALAZINE HCL 50 MG TABLET (FP) ONE ×3 (06:20→22:33)
[2022-07-24] MEDS: hydrALAZINE HCL 10 MG TABLET PO SCH ×3 (06:24→22:44)
[2022-07-24 07:45] LABS: BASO % 0.4 % (0-2.0); EOS % 0.8 % (0-4.5); HEMATOCRIT 31.8 % (32.4-45.2); HEMOGLOBIN 10.3 GM/dL (10.7-15.3); LYMPH % 31.4 % (8-40); MCH 26.5 pg (25.7-33.7); MCHC 32.3 g/dl (32.0-36.0); MEAN PLT VOLUME 8.2 fl (7.5-11.1); NEUT % 58.4 % (42.8-82.8); PLATELET COUNT 238 10^3/uL (134-434); RBC 3.88 M/mm3 (3.60-5.2); WHITE BLOOD COUNT 7.7 K/mm3 (4.0-10.0)
[2022-07-24] MEDS: LEVOTHYROXINE NA 25 MCG TABLET (FP) PO SCH (07:45)
[2022-07-24] MEDS ORDERED: LEVOTHYROXINE NA 25 MCG TABLET (FP) ONE (07:50)
[2022-07-24 08:14] LABS: CHLORIDE 103 mmol/L (98-107); SODIUM 141 mmol/L (136-145)
[2022-07-24 08:16] LABS: CALCIUM 8.9 mg/dL (8.5-10.1)
[2022-07-24 08:17] LABS: ANION GAP 9 MMOL/L (8-16); BLOOD UREA NITROGEN 28.7 mg/dL (7-18); CO2 29 mmol/L (21-32); GLUCOSE,RANDOM 170 mg/dL (74-106); MAGNESIUM 2.5 mg/dL (1.8-2.4)
[2022-07-24] MEDS: INSULIN SLIDING SCALE (NOVOLOG) 1 VIAL SQ SCH ×4 (08:18→22:44)
[2022-07-24 08:20] LABS: CREATININE 1.8 mg/dL (0.55-1.3); PHOSPHOROUS 3.6 mg/dL (2.5-4.9)
[2022-07-24 08:40] LABS: N-TERMINAL BNP 1475.6 pg/ml (5-125)
[2022-07-24] MEDS ORDERED: CARVEDILOL 25 MG TABLET (FP) ONE ×2 (10:04→22:33)
[2022-07-24] MEDS ORDERED: cloNIDine HCL 0.1 MG TABLET ONE ×2 (10:04→22:33)
[2022-07-24] MEDS: cloNIDine HCL 0.1 MG TABLET PO SCH ×2 (10:10→22:44)
[2022-07-24] MEDS: CARVEDILOL 25 MG TABLET (FP) PO SCH ×2 (10:11→22:44)
[2022-07-24] MEDS: TORSEMIDE 20 MG TABLET (FP) PO SCH (10:11)
[2022-07-24] MEDS: COLLAGENASE CLOSTRIDIUM HIST. 30 GRAMS TUBE TP SCH (12:30)
[2022-07-24] MEDS ORDERED: HEPARIN NA (PORCINE) 5,000 UNITS/ML 1ML VIAL ONE ×2 (15:00→22:33)
[2022-07-24] MEDS: HEPARIN NA (PORCINE) 5,000 UNITS/ML 1ML VIAL SQ SCH ×2 (15:11→22:44)
[2022-07-24] MEDS ORDERED: GABAPENTIN 100 MG CAPSULE PO SCH (22:00)
[2022-07-24] MEDS ORDERED: GABAPENTIN 100 MG CAPSULE ONE (22:33)
[2022-07-25] MEDS ORDERED: LEVOTHYROXINE NA 25 MCG TABLET (FP) ONE (05:46)
[2022-07-25] MEDS ORDERED: hydrALAZINE HCL 50 MG TABLET (FP) ONE ×2 (05:47→13:06)
[2022-07-25] MEDS ORDERED: HEPARIN NA (PORCINE) 5,000 UNITS/ML 1ML VIAL ONE ×2 (05:47→13:06)
[2022-07-25] MEDS: hydrALAZINE HCL 10 MG TABLET PO SCH ×2 (06:06→13:14)
[2022-07-25] MEDS: HEPARIN NA (PORCINE) 5,000 UNITS/ML 1ML VIAL SQ SCH ×2 (06:06→13:14)
[2022-07-25] MEDS: LEVOTHYROXINE NA 25 MCG TABLET (FP) PO SCH (06:06)
[2022-07-25] MEDS: INSULIN SLIDING SCALE (NOVOLOG) 1 VIAL SQ SCH ×2 (07:53→11:19)
[2022-07-25] MEDS ORDERED: CARVEDILOL 25 MG TABLET (FP) ONE (08:21)
[2022-07-25] MEDS ORDERED: cloNIDine HCL 0.1 MG TABLET ONE (08:21)
[2022-07-25] MEDS: cloNIDine HCL 0.1 MG TABLET PO SCH (08:22)
[2022-07-25] MEDS: CARVEDILOL 25 MG TABLET (FP) PO SCH (08:22)
[2022-07-25] MEDS: COLLAGENASE CLOSTRIDIUM HIST. 30 GRAMS TUBE TP SCH (08:22)
[2022-07-25] MEDS: TORSEMIDE 20 MG TABLET (FP) PO SCH (09:37)
[2022-07-25 09:45] LABS: CALCIUM 9.8 mg/dL (8.5-10.1)
[2022-07-25 09:46] LABS: ALBUMIN 3.4 g/dl (3.4-5.0); BLOOD UREA NITROGEN 37.9 mg/dL (7-18)
[2022-07-25 09:49] LABS: CREATININE 2.2 mg/dL (0.55-1.3)
[2022-07-25 09:50] LABS: BILIRUBIN,TOTAL 0.5 mg/dL (0.2-1); TOT PROT 7.6 g/dl (6.4-8.2)
[2022-07-25 10:03] VITALS: RESP 20
[2022-07-25 13:15] VITALS: BP 167/73; PULSE 72; TEMP 98.6
== END 2022-07-25 14:41 | disposition home or self-care (01) ==
LOC: JER 21:12 → JERBED 07-24 03:45 → INTOOBSV 07-24 03:45
PROVIDERS: ADMIT Internal Medicine; ATTEND Family Medicine
PROC: 3E023GC Introduction of Other Therapeutic Substance into Muscle, Percutaneous Approach (ICD-10-PCS; principal; 2022-07-24)
PROC: 3E013VG Introduction of Insulin into Subcutaneous Tissue, Percutaneous Approach (ICD-10-PCS; 2022-07-24)
PROC: 3E033GC Introduction of Other Therapeutic Substance into Peripheral Vein, Percutaneous Approach (ICD-10-PCS; 2022-07-24)
DX: E11.9 Type 2 diabetes mellitus without complications (principal); E03.9 Hypothyroidism, unspecified; E66.01 Morbid (severe) obesity due to excess calories; I87.2 Venous insufficiency (chronic) (peripheral); Z68.41 Body mass index [BMI] 40.0-44.9, adult; Z87.891 Personal history of nicotine dependence; J45.909 Unspecified asthma, uncomplicated; E11.22 Type 2 diabetes mellitus with diabetic chronic kidney disease; I13.0 Hypertensive heart and chronic kidney disease with heart failure and stage 1 through stage 4 chronic kidney disease, or unspecified chronic kidney disease; N18.9 Chronic kidney disease, unspecified; Z85.42 Personal history of malignant neoplasm of other parts of uterus; M85.80 Other specified disorders of bone density and structure, unspecified site
CPT/HCPCS: 0241U-QW; 36415; 71275-TC; 74174-TC; 80048; 80053; 80061; 82607; 82728; 82962; 83036; 83540; 83550; 83605; 83735; 83880; 84100; 84439; 84443; 84484; 85025; 85610; 85730; 86850; 86900; 86901; 93005; 93010; 96372; 96374; 99285-25; G0378; J1644; Q9967

== ENCOUNTER 2022-10-22 10:45 | Emergency (ER) | payer OTHER ==
[2022-10-22 10:53] VITALS: RESP 18; TEMP 98.6; BMI 40.3
[2022-10-22] MEDS ORDERED: MEROPENEM 500 MG in DEXTROSE 5%-WATER 100 ML IVPB ONE (12:10)
[2022-10-22] MEDS ORDERED: SODIUM CHLORIDE FOR INHALATION 3 ML VIAL.NEB IH ONE (12:29)
[2022-10-22] MEDS ORDERED: SODIUM CHLORIDE 500 ML IV STA (12:29)
[2022-10-22 12:58] LABS: BASO % 0.4 % (0-2.0); EOS % 0.1 % (0-4.5); HEMATOCRIT 36.6 % (32.4-45.2); MCH 26.6 pg (25.7-33.7); MCHC 32.8 g/dl (32.0-36.0); MEAN CELL VOLUME 81.1 fl (80-96); MEAN PLT VOLUME 8.7 fl (7.5-11.1); MONO % 9.8 % (3.8-10.2); NEUT % 65.7 % (42.8-82.8); PLATELET COUNT 201 10^3/uL (134-434); RBC 4.51 M/mm3 (3.60-5.2); RDW 14.9 % (11.6-15.6); WHITE BLOOD COUNT 6.3 K/mm3 (4.0-10.0)
[2022-10-22 13:01] LABS: VENOUS BASE EXCESS 3.1 mmol/L (-2-2); VENOUS O2 SATURATION 66.1 % (70-80); VENOUS PCO2 49.7 mmHg (38-52); VENOUS PH 7.385 (7.310-7.410)
[2022-10-22 13:18] LABS: ALBUMIN 3.2 g/dl (3.4-5.0); BLOOD UREA NITROGEN 28.3 mg/dL (7-18)
[2022-10-22 13:23] LABS: BILIRUBIN,TOTAL 0.2 mg/dL (0.2-1); TOT PROT 7.2 g/dl (6.4-8.2)
[2022-10-22 13:26] LABS: N-TERMINAL BNP 724.3 pg/ml (5-125)
[2022-10-22] MEDS ORDERED: ACETAMINOPHEN 1000 MG/100 ML BAG IVPB ONE (13:58)
[2022-10-22] MEDS ORDERED: SODIUM CHLORIDE NASAL SPRAY 44 ML BOTTLE NS ONE (14:06)
[2022-10-22] MEDS ORDERED: SODIUM CHLORIDE 0.9% 500 ML INFUS.BAG IV ONE (14:24)
[2022-10-22] MEDS ORDERED: ACETAMINOPHEN INJECTION 100 ML IVPB ONE (14:27)
[2022-10-22] MEDS ORDERED: SODIUM CHLORIDE NASAL SPRAY 44 ML BOTTLE NS NR (14:35)
[2022-10-22 16:28] VITALS: BP 137/62; PULSE 93
== END 2022-10-22 16:30 | disposition home or self-care (01) ==
LOC: JER 10:45
PROC: 3E03329 Introduction of Other Anti-infective into Peripheral Vein, Percutaneous Approach (ICD-10-PCS; principal; 2022-10-22)
PROC: 3E033NZ Introduction of Analgesics, Hypnotics, Sedatives into Peripheral Vein, Percutaneous Approach (ICD-10-PCS; 2022-10-22)
PROC: 3E0337Z Introduction of Electrolytic and Water Balance Substance into Peripheral Vein, Percutaneous Approach (ICD-10-PCS; 2022-10-22)
DX: R05.1 Acute cough (principal); R06.02 Shortness of breath; R53.1 Weakness; Z20.822 Contact with and (suspected) exposure to COVID-19
CPT/HCPCS: 0241U-QW; 36415; 71045-TC-FY; 80053; 82010; 82803; 83880; 84484; 85025; 93005; 93010; 99285-25

== ENCOUNTER 2023-05-25 11:40 | Inpatient (IN) | payer OTHER ==
[2023-05-25 11:55] VITALS: BMI 33.7
[2023-05-25] MEDS ORDERED: CLINDAMYCIN 600MG PREMIX IVPB 600 MG/50 ML BAG IVPB ONE (12:43)
[2023-05-25] MEDS ORDERED: CLINDAMYCIN HCL 150 MG CAPSULE (FP) PO ONE (13:45)
[2023-05-25 13:48] LABS: BASO % 0.5 % (0-2.0); EOS % 0.7 % (0-4.5); HEMOGLOBIN 11.1 GM/dL (10.7-15.3); LYMPH % 24.2 % (8-40); MCH 26.1 pg (25.7-33.7); MCHC 31.8 g/dl (32.0-36.0); MEAN CELL VOLUME 82.1 fl (80-96); MEAN PLT VOLUME 7.6 fl (7.5-11.1); MONO % 4.2 % (3.8-10.2); NEUT % 70.4 % (42.8-82.8); PLATELET COUNT 312 10^3/uL (134-434); RBC 4.26 M/mm3 (3.60-5.2); RDW 15.5 % (11.6-15.6); WHITE BLOOD COUNT 11.6 K/mm3 (4.0-10.0)
[2023-05-25] MEDS ORDERED: CLINDAMYCIN HCL 150 MG CAPSULE (FP) ONE (13:55)
[2023-05-25 14:03] LABS: POTASSIUM 3.9 mmol/L (3.5-5.1)
[2023-05-25 14:05] LABS: CALCIUM 9.6 mg/dL (8.5-10.1)
[2023-05-25 14:06] LABS: ALBUMIN 3.3 g/dl (3.4-5.0)
[2023-05-25] MEDS: NYSTATIN 100,000 UNIT/GM TOPICAL CREAM 15 GM TUBE TP SCH ×2 (14:10→22:54)
[2023-05-25 14:11] LABS: BILIRUBIN,TOTAL 0.3 mg/dL (0.2-1); TOT PROT 7.1 g/dl (6.4-8.2)
[2023-05-25 14:15] LABS: BLOOD UREA NITROGEN 23.9 mg/dL (7-18); CREATININE 1.4 mg/dL (0.55-1.3)
[2023-05-25 17:15] LABS: URINE APPEARANCE CLEAR; URINE BILIRUBIN NEGATIVE (NEGATIVE); URINE COLOR YELLOW; URINE GLUCOSE (UA) 2+ (NEGATIVE); URINE KETONE NEGATIVE (NEGATIVE); URINE NITRITE NEGATIVE (NEGATIVE); URINE PROTEIN 2+ (NEGATIVE); URINE UROBILINOGEN 0.2 mg/dL (0.2-1.0)
[2023-05-25 17:16] LABS: EPI CELLS 1 /uL (0-25.1); HYALINE CASTS 0 /uL (0-3.1); URINE BACTERIA 105 /uL (0-1359); URINE LEUK ESTERASE 1+ (NEGATIVE); URINE RBC 18 /uL (0-23.9); URINE WBC 150 /uL (0-25.8)
[2023-05-25] MEDS: CARVEDILOL 25 MG TABLET (FP) PO SCH (21:28)
[2023-05-25] MEDS: hydrALAZINE HCL 50 MG TABLET (FP) PO SCH (21:28)
[2023-05-25] MEDS: ACETAMINOPHEN 325 MG TABLET (FP) PO PRN (21:28)
[2023-05-25] MEDS ORDERED: oxyCODONE HCL 5 MG TABLET PO PRN (21:28)
[2023-05-25] MEDS ORDERED: ACETAMINOPHEN 325 MG TABLET (FP) PO PRN (21:29)
[2023-05-25] MEDS: INSULIN SLIDING SCALE (NOVOLOG) 1 VIAL SQ SCH (22:53)
[2023-05-26] MEDS: hydrALAZINE HCL 50 MG TABLET (FP) PO SCH ×3 (05:59→21:22)
[2023-05-26] MEDS: INSULIN SLIDING SCALE (NOVOLOG) 1 VIAL SQ SCH ×4 (06:38→22:49)
[2023-05-26] MEDS ORDERED: oxyCODONE HCL 5 MG TABLET PO PRN (09:41)
[2023-05-26] MEDS: ACETAMINOPHEN 325 MG TABLET (FP) PO PRN ×2 (09:54→16:24)
[2023-05-26] MEDS: TORSEMIDE 20 MG TABLET (FP) PO SCH (09:55)
[2023-05-26] MEDS: DULoxetine HCL 20 MG CAPSULE.DR PO SCH (09:55)
[2023-05-26] MEDS: CARVEDILOL 25 MG TABLET (FP) PO SCH ×2 (09:55→21:22)
[2023-05-26] MEDS: NYSTATIN 100,000 UNIT/GM TOPICAL CREAM 15 GM TUBE TP SCH (10:06)
[2023-05-26 10:43] LABS: HEMATOCRIT 34.6 % (32.4-45.2); HEMOGLOBIN 11.3 GM/dL (10.7-15.3); MCH 26.6 pg (25.7-33.7); MCHC 32.7 g/dl (32.0-36.0); MEAN CELL VOLUME 81.4 fl (80-96); MEAN PLT VOLUME 7.9 fl (7.5-11.1); PLATELET COUNT 273 10^3/uL (134-434); RBC 4.26 M/mm3 (3.60-5.2); WHITE BLOOD COUNT 8.4 K/mm3 (4.0-10.0)
[2023-05-26 11:12] LABS: POTASSIUM 3.9 mmol/L (3.5-5.1)
[2023-05-26 11:29] LABS: CALCIUM 9.2 mg/dL (8.5-10.1)
[2023-05-26 11:30] LABS: ALBUMIN 2.8 g/dl (3.4-5.0)
[2023-05-26 11:33] LABS: CREATININE 1.4 mg/dL (0.55-1.3)
[2023-05-26 11:34] LABS: TOT PROT 6.4 g/dl (6.4-8.2)
[2023-05-26 11:57] LABS: BILIRUBIN,TOTAL 0.3 mg/dL (0.2-1)
[2023-05-26] MEDS: CLOTRIMAZOLE/BETAMET DIPROP 15 GM TUBE TP SCH ×2 (15:00→21:23)
[2023-05-26] MEDS ORDERED: POLYETHYLENE GLYCOL (HEALTHYLAX) 3350 17 GM PACKET PO ONE (16:30)
[2023-05-26] MEDS ORDERED: POLYETHYLENE GLYCOL (HEALTHYLAX) 3350 17 GM PACKET PO SCH (16:30)
[2023-05-26] MEDS ORDERED: MINERAL OIL ENEMA 133 ML ENEMA RC ONE (20:49)
[2023-05-26] MEDS: cloNIDine HCL 0.1 MG TABLET PO SCH (21:22)
[2023-05-26] MEDS: POLYETHYLENE GLYCOL (HEALTHYLAX) 3350 17 GM PACKET PO SCH (21:23)
[2023-05-26] MEDS ORDERED: SILVER SULFADIAZINE 1% TOP CREAM 50 GM JAR TP SCH (22:00)
[2023-05-27] MEDS: hydrALAZINE HCL 50 MG TABLET (FP) PO SCH ×3 (05:49→22:04)
[2023-05-27] MEDS: INSULIN SLIDING SCALE (NOVOLOG) 1 VIAL SQ SCH ×4 (06:32→22:17)
[2023-05-27] MEDS: CARVEDILOL 25 MG TABLET (FP) PO SCH ×2 (09:03→22:04)
[2023-05-27] MEDS: POLYETHYLENE GLYCOL (HEALTHYLAX) 3350 17 GM PACKET PO SCH ×2 (09:04→22:05)
[2023-05-27] MEDS: DULoxetine HCL 20 MG CAPSULE.DR PO SCH (09:04)
[2023-05-27] MEDS: TORSEMIDE 20 MG TABLET (FP) PO SCH (09:04)
[2023-05-27] MEDS: cloNIDine HCL 0.1 MG TABLET PO SCH ×2 (09:04→22:04)
[2023-05-27] MEDS: CLOTRIMAZOLE/BETAMET DIPROP 15 GM TUBE TP SCH ×2 (09:08→22:03)
[2023-05-27] MEDS: CEFTRIAXONE 1 GM in DEXTROSE 5%-WATER - 50 ML IVPB SCH (14:03)
[2023-05-27] MEDS: HYDROCORTISONE 2.5% TOPICAL CREAM 30 GM TUBE TP SCH (22:16)
[2023-05-28] MEDS: hydrALAZINE HCL 50 MG TABLET (FP) PO SCH ×3 (06:25→21:11)
[2023-05-28] MEDS: INSULIN (LEVEMIR) 100 UNITS/ML UNITS SQ SCH (06:33)
[2023-05-28] MEDS: INSULIN SLIDING SCALE (NOVOLOG) 1 VIAL SQ SCH ×4 (06:33→21:13)
[2023-05-28] MEDS ORDERED: INSULIN (LEVEMIR) 100 UNITS/ML UNITS SQ SCH (07:00)
[2023-05-28] MEDS: cloNIDine HCL 0.1 MG TABLET PO SCH ×2 (09:50→21:10)
[2023-05-28] MEDS: TORSEMIDE 20 MG TABLET (FP) PO SCH (09:50)
[2023-05-28] MEDS: CARVEDILOL 25 MG TABLET (FP) PO SCH ×2 (09:50→21:10)
[2023-05-28] MEDS: CEFTRIAXONE 1 GM in DEXTROSE 5%-WATER - 50 ML IVPB SCH (09:50)
[2023-05-28] MEDS: POLYETHYLENE GLYCOL (HEALTHYLAX) 3350 17 GM PACKET PO SCH ×2 (09:51→21:12)
[2023-05-28] MEDS: DULoxetine HCL 20 MG CAPSULE.DR PO SCH (09:51)
[2023-05-28] MEDS: CLOTRIMAZOLE/BETAMET DIPROP 15 GM TUBE TP SCH ×2 (09:53→21:12)
[2023-05-28] MEDS: HYDROCORTISONE 2.5% TOPICAL CREAM 30 GM TUBE TP SCH ×2 (09:53→21:12)
[2023-05-28] MEDS ORDERED: PIPERACILLIN/TAZOB 4.5 GM 4.5 GM in DEXTROSE 5%-WATER 100 ML IVPB SCH (18:00)
[2023-05-28] MEDS: PIPERACILLIN/TAZOB 4.5 GM 4.5 GM in DEXTROSE 5%-WATER 100 ML IVPB SCH (18:04)
[2023-05-28] MEDS: ACETAMINOPHEN 325 MG TABLET (FP) PO PRN (21:10)
[2023-05-29] MEDS: PIPERACILLIN/TAZOB 4.5 GM 4.5 GM in DEXTROSE 5%-WATER 100 ML IVPB SCH ×2 (01:44→09:43)
[2023-05-29] MEDS: INSULIN SLIDING SCALE (NOVOLOG) 1 VIAL SQ SCH ×4 (06:13→22:43)
[2023-05-29] MEDS: hydrALAZINE HCL 50 MG TABLET (FP) PO SCH ×3 (06:13→21:10)
[2023-05-29] MEDS: INSULIN (LEVEMIR) 100 UNITS/ML UNITS SQ SCH (06:14)
[2023-05-29] MEDS: CARVEDILOL 25 MG TABLET (FP) PO SCH ×2 (09:43→21:10)
[2023-05-29] MEDS: cloNIDine HCL 0.1 MG TABLET PO SCH ×2 (09:43→21:10)
[2023-05-29] MEDS: CLOTRIMAZOLE/BETAMET DIPROP 15 GM TUBE TP SCH ×2 (09:44→23:37)
[2023-05-29] MEDS: DULoxetine HCL 20 MG CAPSULE.DR PO SCH (09:44)
[2023-05-29] MEDS: POLYETHYLENE GLYCOL (HEALTHYLAX) 3350 17 GM PACKET PO SCH ×2 (09:44→22:31)
[2023-05-29] MEDS: TORSEMIDE 20 MG TABLET (FP) PO SCH (09:44)
[2023-05-29] MEDS: HYDROCORTISONE 2.5% TOPICAL CREAM 30 GM TUBE TP SCH ×2 (09:44→22:31)
[2023-05-29] MEDS: ACETAMINOPHEN 325 MG TABLET (FP) PO PRN (21:10)
[2023-05-30] MEDS: hydrALAZINE HCL 50 MG TABLET (FP) PO SCH ×3 (06:04→21:08)
[2023-05-30] MEDS: INSULIN SLIDING SCALE (NOVOLOG) 1 VIAL SQ SCH ×4 (06:05→21:28)
[2023-05-30] MEDS: INSULIN (LEVEMIR) 100 UNITS/ML UNITS SQ SCH (06:36)
[2023-05-30] MEDS: POLYETHYLENE GLYCOL (HEALTHYLAX) 3350 17 GM PACKET PO SCH ×2 (10:20→21:08)
[2023-05-30] MEDS: CARVEDILOL 25 MG TABLET (FP) PO SCH ×2 (10:20→21:08)
[2023-05-30] MEDS: cloNIDine HCL 0.1 MG TABLET PO SCH ×2 (10:20→21:08)
[2023-05-30] MEDS: HYDROCORTISONE 2.5% TOPICAL CREAM 30 GM TUBE TP SCH ×2 (10:21→21:10)
[2023-05-30] MEDS: CLOTRIMAZOLE/BETAMET DIPROP 15 GM TUBE TP SCH ×2 (10:21→21:09)
[2023-05-30] MEDS: DULoxetine HCL 20 MG CAPSULE.DR PO SCH (10:21)
[2023-05-30] MEDS: TORSEMIDE 20 MG TABLET (FP) PO SCH (10:21)
[2023-05-31] MEDS: hydrALAZINE HCL 50 MG TABLET (FP) PO SCH ×2 (06:05→14:01)
[2023-05-31] MEDS: INSULIN SLIDING SCALE (NOVOLOG) 1 VIAL SQ SCH ×2 (06:11→13:16)
[2023-05-31] MEDS: INSULIN (LEVEMIR) 100 UNITS/ML UNITS SQ SCH (06:33)
[2023-05-31 07:00] VITALS: PULSE 58
[2023-05-31] MEDS: POLYETHYLENE GLYCOL (HEALTHYLAX) 3350 17 GM PACKET PO SCH (11:02)
[2023-05-31] MEDS: CARVEDILOL 25 MG TABLET (FP) PO SCH (11:02)
[2023-05-31] MEDS: cloNIDine HCL 0.1 MG TABLET PO SCH (11:02)
[2023-05-31] MEDS: DULoxetine HCL 20 MG CAPSULE.DR PO SCH (11:03)
[2023-05-31] MEDS: CLOTRIMAZOLE/BETAMET DIPROP 15 GM TUBE TP SCH (11:04)
[2023-05-31] MEDS: TORSEMIDE 20 MG TABLET (FP) PO SCH (11:04)
[2023-05-31] MEDS: HYDROCORTISONE 2.5% TOPICAL CREAM 30 GM TUBE TP SCH (11:05)
[2023-05-31] MEDS: ACETAMINOPHEN 325 MG TABLET (FP) PO PRN (13:00)
[2023-05-31 16:12] VITALS: BP 144/70; RESP 16; TEMP 97.7
== END 2023-05-31 18:10 | DRG 603 ==
LOC: JER 11:40 → JERBED 13:25 → OBSVTOIN 18:16 → J5S 20:01
PROVIDERS: ADMIT Internal Medicine; ATTEND Internal Medicine
DX: L03.221 Cellulitis of neck (principal); I13.0 Hypertensive heart and chronic kidney disease with heart failure and stage 1 through stage 4 chronic kidney disease, or unspecified chronic kidney disease; R21 Rash and other nonspecific skin eruption; E03.9 Hypothyroidism, unspecified; I50.9 Heart failure, unspecified; E78.5 Hyperlipidemia, unspecified; E11.22 Type 2 diabetes mellitus with diabetic chronic kidney disease; N18.9 Chronic kidney disease, unspecified; E11.43 Type 2 diabetes mellitus with diabetic autonomic (poly)neuropathy; M51.36 Other intervertebral disc degeneration, lumbar region; M21.372 Foot drop, left foot; M21.371 Foot drop, right foot
CPT/HCPCS: 36415; 72131-TC; 73610-TC-RT-FY; 80053; 81003; 82962; 85025; 85027; 87040; 87086; 87186; 87635; 93005; 93010; 97116-GP; 97163-GP; 99285-25; G0378

== ENCOUNTER 2023-06-21 10:26 | Inpatient (IN) | payer OTHER ==
[2023-06-21 10:35] VITALS: BMI 27.4
[2023-06-21 12:33] LABS: BASO % 0.3 % (0-2.0); EOS % 0.6 % (0-4.5); HEMATOCRIT 33.4 % (32.4-45.2); HEMOGLOBIN 10.9 GM/dL (10.7-15.3); LYMPH % 21.4 % (8-40); MCH 26.6 pg (25.7-33.7); MCHC 32.6 g/dl (32.0-36.0); MEAN CELL VOLUME 81.7 fl (80-96); MEAN PLT VOLUME 7.4 fl (7.5-11.1); NEUT % 71.7 % (42.8-82.8); PLATELET COUNT 349 10^3/uL (134-434); RBC 4.08 M/mm3 (3.60-5.2); RDW 14.5 % (11.6-15.6); WHITE BLOOD COUNT 11.5 K/mm3 (4.0-10.0)
[2023-06-21 12:36] LABS: VENOUS BASE EXCESS 0.6 mmol/L (-2-2); VENOUS O2 SATURATION 48.1 % (70-80); VENOUS PCO2 50.3 mmHg (38-52); VENOUS PH 7.342 (7.310-7.410)
[2023-06-21 12:59] LABS: CHLORIDE 92 mmol/L (98-107); POTASSIUM 3.5 mmol/L (3.5-5.1); SODIUM 131 mmol/L (136-145)
[2023-06-21 13:01] LABS: ALBUMIN 2.5 g/dl (3.4-5.0); CALCIUM 9.4 mg/dL (8.5-10.1)
[2023-06-21 13:02] LABS: ANION GAP 12 mmol/L (4-13); BLOOD UREA NITROGEN 39.8 mg/dL (7-18); CO2 27 mmol/L (21-32); GLUCOSE,RANDOM 182 mg/dL (74-106)
[2023-06-21 13:03] LABS: URINE APPEARANCE TURBID; URINE BILIRUBIN NEGATIVE (NEGATIVE); URINE COLOR YELLOW; URINE GLUCOSE (UA) 1+ (NEGATIVE); URINE KETONE NEGATIVE (NEGATIVE); URINE LEUK ESTERASE 3+ (NEGATIVE); URINE NITRITE NEGATIVE (NEGATIVE); URINE PROTEIN 1+ (NEGATIVE); URINE UROBILINOGEN 0.2 mg/dL (0.2-1.0)
[2023-06-21 13:04] LABS: CREATININE 1.8 mg/dL (0.55-1.3); SGOT/AST 7 U/L (15-37)
[2023-06-21 13:05] LABS: SGPT/ALT < 6 U/L (13-61)
[2023-06-21 13:06] LABS: EPI CELLS 0.3 /uL (0-25.1); URINE BACTERIA 9624.1 /uL (0-1359); URINE RBC 352.5 /uL (0-23.9)
[2023-06-21 13:07] LABS: BILIRUBIN,TOTAL 0.3 mg/dL (0.2-1); TOT PROT 6.5 g/dl (6.4-8.2)
[2023-06-21 13:08] LABS: ALK PHOS 92 U/L (45-117)
[2023-06-21 13:27] LABS: YEAST FEW (NEGATIVE)
[2023-06-21] MEDS ORDERED: CEFTRIAXONE 1,000 MG in DEXTROSE 5%-WATER - 50 ML IVPB ONE (13:34)
[2023-06-21] MEDS ORDERED: CEFTRIAXONE 1 GM/50 ML BAG ONE (13:40)
[2023-06-21] MEDS ORDERED: SODIUM CHLORIDE 0.9% 1000 ML INFUS.BAG IV ONE (14:59)
[2023-06-21] MEDS ORDERED: ACETAMINOPHEN 325 MG TABLET (FP) PO PRN (16:30)
[2023-06-21] MEDS ORDERED: DOCUSATE SODIUM 100 MG CAPSULE (FP) PO PRN (16:30)
[2023-06-21] MEDS: INSULIN SLIDING SCALE (NOVOLOG) 1 VIAL SQ SCH ×2 (17:44→22:04)
[2023-06-21] MEDS ORDERED: REMDESIVIR 200 MG in SODIUM CHLORIDE 250 ML IVPB ONE (21:16)
[2023-06-21] MEDS: cloNIDine HCL 0.1 MG TABLET PO SCH (21:52)
[2023-06-21] MEDS: CARVEDILOL 25 MG TABLET (FP) PO SCH (21:52)
[2023-06-21] MEDS: hydrALAZINE HCL 50 MG TABLET (FP) PO SCH (21:52)
[2023-06-21] MEDS: INSULIN (LEVEMIR) 100 UNITS/ML UNITS SQ SCH (21:52)
[2023-06-22] MEDS ORDERED: INSULIN (LEVEMIR) 100 UNITS/ML UNITS SQ ONE (03:02)
[2023-06-22] MEDS: LEVOTHYROXINE NA 25 MCG TABLET (FP) PO SCH (06:09)
[2023-06-22] MEDS: hydrALAZINE HCL 50 MG TABLET (FP) PO SCH ×3 (06:09→22:00)
[2023-06-22] MEDS: INSULIN SLIDING SCALE (NOVOLOG) 1 VIAL SQ SCH ×4 (06:10→22:03)
[2023-06-22 08:37] LABS: HEMATOCRIT 31.8 % (32.4-45.2); HEMOGLOBIN 10.5 GM/dL (10.7-15.3); MCH 26.7 pg (25.7-33.7); MCHC 32.9 g/dl (32.0-36.0); MEAN CELL VOLUME 81.2 fl (80-96); MEAN PLT VOLUME 7.3 fl (7.5-11.1); PLATELET COUNT 317 10^3/uL (134-434); RBC 3.92 M/mm3 (3.60-5.2); RDW 14.6 % (11.6-15.6); WHITE BLOOD COUNT 8.8 K/mm3 (4.0-10.0)
[2023-06-22 08:53] LABS: CHLORIDE 100 mmol/L (98-107); POTASSIUM 3.2 mmol/L (3.5-5.1); SODIUM 137 mmol/L (136-145)
[2023-06-22 09:01] LABS: ALBUMIN 2.3 g/dl (3.4-5.0); BLOOD UREA NITROGEN 31.2 mg/dL (7-18); GLUCOSE,RANDOM 74 mg/dL (74-106); SGPT/ALT < 6 U/L (13-61)
[2023-06-22 09:02] LABS: ANION GAP 7 mmol/L (4-13); CO2 30 mmol/L (21-32); TOT PROT 5.9 g/dl (6.4-8.2)
[2023-06-22 09:03] LABS: BILIRUBIN,TOTAL 0.3 mg/dL (0.2-1)
[2023-06-22 09:04] LABS: ALK PHOS 82 U/L (45-117); CREATININE 1.6 mg/dL (0.55-1.3); SGOT/AST < 3 U/L (15-37)
[2023-06-22] MEDS: DULoxetine HCL 20 MG CAPSULE.DR PO SCH (09:15)
[2023-06-22] MEDS: POLYETHYLENE GLYCOL (HEALTHYLAX) 3350 17 GM PACKET PO SCH (09:15)
[2023-06-22] MEDS: TORSEMIDE 20 MG TABLET (FP) PO SCH (09:15)
[2023-06-22] MEDS: cloNIDine HCL 0.1 MG TABLET PO SCH ×2 (09:15→22:00)
[2023-06-22] MEDS: TAMSULOSIN HCL 0.4 MG CAP PO SCH (09:15)
[2023-06-22] MEDS: CARVEDILOL 25 MG TABLET (FP) PO SCH ×2 (09:16→22:00)
[2023-06-22] MEDS: HYDROCORTISONE 2.5% TOPICAL CREAM 30 GM TUBE TP SCH (09:17)
[2023-06-22 09:35] LABS: ERYTHROCYTE SEDIMENTATION RATE 90 mm/hr (0-30)
[2023-06-22] MEDS: oxyCODONE HCL 5 MG TABLET PO PRN (11:07)
[2023-06-22] MEDS: CEFEPIME 1 GM in DEXTROSE 5%-WATER 100 ML IVPB SCH ×2 (12:43→22:00)
[2023-06-22] MEDS ORDERED: VANCOMYCIN/WATER FOR INJ (PEG) 1,000 MG/200 ML BAG IVPB ONE (13:00)
[2023-06-22] MEDS ORDERED: POTASSIUM CHLORIDE TABS 20 MEQ TABLET.ER (FP) PO ONE (13:42)
[2023-06-22 15:35] VITALS: RESP 18
[2023-06-22] MEDS: REMDESIVIR 100 MG in SODIUM CHLORIDE 250 ML IVPB SCH (16:17)
[2023-06-22] MEDS: INSULIN (LEVEMIR) 100 UNITS/ML UNITS SQ SCH (22:03)
[2023-06-22] MEDS ORDERED: MAG HYDROX/AL HYDROX/SIMETH 30 ML UNIT-DOSE CUP PO ONE (23:59)
[2023-06-23] MEDS: LEVOTHYROXINE NA 25 MCG TABLET (FP) PO SCH (06:05)
[2023-06-23] MEDS: INSULIN SLIDING SCALE (NOVOLOG) 1 VIAL SQ SCH ×4 (06:06→21:53)
[2023-06-23] MEDS: hydrALAZINE HCL 50 MG TABLET (FP) PO SCH ×3 (06:08→21:52)
[2023-06-23] MEDS: cloNIDine HCL 0.1 MG TABLET PO SCH ×2 (09:39→21:52)
[2023-06-23] MEDS: CARVEDILOL 25 MG TABLET (FP) PO SCH ×2 (09:39→21:52)
[2023-06-23] MEDS: DULoxetine HCL 20 MG CAPSULE.DR PO SCH (09:39)
[2023-06-23] MEDS: TAMSULOSIN HCL 0.4 MG CAP PO SCH (09:40)
[2023-06-23] MEDS: CEFEPIME 1 GM in DEXTROSE 5%-WATER 100 ML IVPB SCH (09:40)
[2023-06-23] MEDS: TORSEMIDE 20 MG TABLET (FP) PO SCH (09:40)
[2023-06-23] MEDS: POLYETHYLENE GLYCOL (HEALTHYLAX) 3350 17 GM PACKET PO SCH ×2 (09:40→21:53)
[2023-06-23 09:48] LABS: POTASSIUM 3.8 mmol/L (3.5-5.1)
[2023-06-23] MEDS: HYDROCORTISONE 2.5% TOPICAL CREAM 30 GM TUBE TP SCH (09:48)
[2023-06-23 10:06] LABS: ALBUMIN 2.2 g/dl (3.4-5.0); CALCIUM 8.9 mg/dL (8.5-10.1)
[2023-06-23 10:10] LABS: BLOOD UREA NITROGEN 32.9 mg/dL (7-18); CREATININE 1.6 mg/dL (0.55-1.3)
[2023-06-23 10:12] LABS: BILIRUBIN,TOTAL 0.3 mg/dL (0.2-1); TOT PROT 5.9 g/dl (6.4-8.2)
[2023-06-23] MEDS ORDERED: SODIUM PHOSPHATE/NA BIPHOS 133 ML ENEMA RC ONE (10:45)
[2023-06-23] MEDS ORDERED: METHYLNALTREXONE BROMIDE 8 MG/0.4 ML SYRINGE SQ ONE (11:30)
[2023-06-23] MEDS ORDERED: VANCOMYCIN/WATER FOR INJ (PEG) 1,000 MG/200 ML BAG IVPB ONE (15:18)
[2023-06-23] MEDS: REMDESIVIR 100 MG in SODIUM CHLORIDE 250 ML IVPB SCH (16:56)
[2023-06-23] MEDS: INSULIN (LEVEMIR) 100 UNITS/ML UNITS SQ SCH (21:52)
[2023-06-24] MEDS: oxyCODONE HCL 5 MG TABLET PO PRN ×2 (00:54→21:51)
[2023-06-24] MEDS: LEVOTHYROXINE NA 25 MCG TABLET (FP) PO SCH (07:09)
[2023-06-24] MEDS: hydrALAZINE HCL 50 MG TABLET (FP) PO SCH ×3 (07:10→21:49)
[2023-06-24] MEDS: INSULIN SLIDING SCALE (NOVOLOG) 1 VIAL SQ SCH ×4 (07:10→22:00)
[2023-06-24] MEDS: POLYETHYLENE GLYCOL (HEALTHYLAX) 3350 17 GM PACKET PO SCH ×2 (10:30→22:01)
[2023-06-24] MEDS: cloNIDine HCL 0.1 MG TABLET PO SCH ×2 (10:30→21:49)
[2023-06-24] MEDS: TORSEMIDE 20 MG TABLET (FP) PO SCH (10:31)
[2023-06-24] MEDS: DULoxetine HCL 20 MG CAPSULE.DR PO SCH (10:31)
[2023-06-24] MEDS: CARVEDILOL 25 MG TABLET (FP) PO SCH ×2 (10:31→21:50)
[2023-06-24] MEDS: TAMSULOSIN HCL 0.4 MG CAP PO SCH (10:31)
[2023-06-24] MEDS: HYDROCORTISONE 2.5% TOPICAL CREAM 30 GM TUBE TP SCH (10:34)
[2023-06-24] MEDS: REMDESIVIR 100 MG in SODIUM CHLORIDE 250 ML IVPB SCH (16:57)
[2023-06-24] MEDS ORDERED: INSULIN (NOVOLOG) ASPART 100 UNITS/ML 10ML VIAL ONE ×2 (17:08→21:42)
[2023-06-24] MEDS: METHYLNALTREXONE BROMIDE 8 MG/0.4 ML SYRINGE SQ SCH (21:48)
[2023-06-24] MEDS: AMOXICILLIN 500 MG CAPSULE (FP) PO SCH (21:49)
[2023-06-24] MEDS: INSULIN (LEVEMIR) 100 UNITS/ML UNITS SQ SCH (22:01)
[2023-06-25] MEDS ORDERED: INSULIN (NOVOLOG) ASPART 100 UNITS/ML 10ML VIAL ONE ×4 (05:24→21:45)
[2023-06-25] MEDS: hydrALAZINE HCL 50 MG TABLET (FP) PO SCH ×3 (06:16→22:09)
[2023-06-25] MEDS: LEVOTHYROXINE NA 25 MCG TABLET (FP) PO SCH (06:17)
[2023-06-25] MEDS: AMOXICILLIN 500 MG CAPSULE (FP) PO SCH ×3 (06:17→22:09)
[2023-06-25] MEDS: INSULIN SLIDING SCALE (NOVOLOG) 1 VIAL SQ SCH ×4 (06:23→22:10)
[2023-06-25 08:07] LABS: BASO % 0.6 % (0-2.0); EOS % 1.9 % (0-4.5); HEMATOCRIT 31.5 % (32.4-45.2); HEMOGLOBIN 10.3 GM/dL (10.7-15.3); LYMPH % 35.3 % (8-40); MCH 26.8 pg (25.7-33.7); MCHC 32.7 g/dl (32.0-36.0); MEAN CELL VOLUME 81.8 fl (80-96); MEAN PLT VOLUME 7.4 fl (7.5-11.1); MONO % 8.1 % (3.8-10.2); NEUT % 54.1 % (42.8-82.8); PLATELET COUNT 300 10^3/uL (134-434); RBC 3.85 M/mm3 (3.60-5.2); WHITE BLOOD COUNT 7.8 K/mm3 (4.0-10.0)
[2023-06-25 08:23] LABS: POTASSIUM 3.5 mmol/L (3.5-5.1)
[2023-06-25 08:43] LABS: BLOOD UREA NITROGEN 29.8 mg/dL (7-18)
[2023-06-25 08:44] LABS: CALCIUM 9.1 mg/dL (8.5-10.1)
[2023-06-25 08:45] LABS: ALBUMIN 2.3 g/dl (3.4-5.0)
[2023-06-25 08:47] LABS: BILIRUBIN,TOTAL 0.3 mg/dL (0.2-1); CREATININE 1.5 mg/dL (0.55-1.3)
[2023-06-25 08:48] LABS: TOT PROT 5.8 g/dl (6.4-8.2)
[2023-06-25] MEDS: cloNIDine HCL 0.1 MG TABLET PO SCH ×2 (10:00→22:09)
[2023-06-25] MEDS: POLYETHYLENE GLYCOL (HEALTHYLAX) 3350 17 GM PACKET PO SCH ×2 (10:00→22:09)
[2023-06-25] MEDS: TORSEMIDE 20 MG TABLET (FP) PO SCH (10:00)
[2023-06-25] MEDS: CARVEDILOL 25 MG TABLET (FP) PO SCH ×2 (10:00→22:09)
[2023-06-25] MEDS: DULoxetine HCL 20 MG CAPSULE.DR PO SCH (10:01)
[2023-06-25] MEDS: TAMSULOSIN HCL 0.4 MG CAP PO SCH (10:01)
[2023-06-25] MEDS: HYDROCORTISONE 2.5% TOPICAL CREAM 30 GM TUBE TP SCH (10:02)
[2023-06-25] MEDS: REMDESIVIR 100 MG in SODIUM CHLORIDE 250 ML IVPB SCH (17:15)
[2023-06-25] MEDS: METHYLNALTREXONE BROMIDE 8 MG/0.4 ML SYRINGE SQ SCH (17:16)
[2023-06-25] MEDS: INSULIN (LEVEMIR) 100 UNITS/ML UNITS SQ SCH (22:09)
[2023-06-25] MEDS: oxyCODONE HCL 5 MG TABLET PO PRN (22:10)
[2023-06-26] MEDS ORDERED: INSULIN (NOVOLOG) ASPART 100 UNITS/ML 10ML VIAL ONE (05:32)
[2023-06-26] MEDS: hydrALAZINE HCL 50 MG TABLET (FP) PO SCH ×2 (06:33→14:22)
[2023-06-26] MEDS: INSULIN SLIDING SCALE (NOVOLOG) 1 VIAL SQ SCH ×3 (06:33→17:17)
[2023-06-26] MEDS: AMOXICILLIN 500 MG CAPSULE (FP) PO SCH ×2 (06:33→14:22)
[2023-06-26] MEDS: LEVOTHYROXINE NA 25 MCG TABLET (FP) PO SCH (06:33)
[2023-06-26 08:46] LABS: BASO % 0.8 % (0-2.0); EOS % 0.7 % (0-4.5); HEMATOCRIT 33.6 % (32.4-45.2); HEMOGLOBIN 10.7 GM/dL (10.7-15.3); LYMPH % 28.6 % (8-40); MCH 25.9 pg (25.7-33.7); MCHC 31.8 g/dl (32.0-36.0); MEAN CELL VOLUME 81.6 fl (80-96); MEAN PLT VOLUME 7.2 fl (7.5-11.1); MONO % 7.6 % (3.8-10.2); NEUT % 62.3 % (42.8-82.8); PLATELET COUNT 329 10^3/uL (134-434); RBC 4.12 M/mm3 (3.60-5.2)
[2023-06-26 09:04] LABS: POTASSIUM 3.5 mmol/L (3.5-5.1)
[2023-06-26 09:05] LABS: CALCIUM 8.8 mg/dL (8.5-10.1)
[2023-06-26 09:06] LABS: BLOOD UREA NITROGEN 28.1 mg/dL (7-18)
[2023-06-26 09:09] LABS: CREATININE 1.4 mg/dL (0.55-1.3)
[2023-06-26] MEDS: cloNIDine HCL 0.1 MG TABLET PO SCH (09:43)
[2023-06-26] MEDS: TORSEMIDE 20 MG TABLET (FP) PO SCH (09:43)
[2023-06-26] MEDS: POLYETHYLENE GLYCOL (HEALTHYLAX) 3350 17 GM PACKET PO SCH (09:43)
[2023-06-26] MEDS: TAMSULOSIN HCL 0.4 MG CAP PO SCH (09:43)
[2023-06-26] MEDS: DULoxetine HCL 20 MG CAPSULE.DR PO SCH (09:43)
[2023-06-26] MEDS: CARVEDILOL 25 MG TABLET (FP) PO SCH (09:43)
[2023-06-26] MEDS: HYDROCORTISONE 2.5% TOPICAL CREAM 30 GM TUBE TP SCH (09:49)
[2023-06-26] MEDS: METHYLNALTREXONE BROMIDE 8 MG/0.4 ML SYRINGE SQ SCH (13:20)
[2023-06-26] MEDS ORDERED: DOCUSATE SODIUM 100 MG CAPSULE (FP) PO SCH (15:00)
[2023-06-26 15:17] VITALS: BP 123/50; PULSE 60; TEMP 97.7
== END 2023-06-26 19:20 | DRG 689 ==
LOC: JER 10:26 → JERBED 13:51 → J8W 18:45
PROVIDERS: ADMIT Family Medicine; ATTEND Family Medicine
PROC: XW033E5 Introduction of Remdesivir Anti-infective into Peripheral Vein, Percutaneous Approach, New Technology Group 5 (ICD-10-PCS; principal; 2023-06-21)
DX: N39.0 Urinary tract infection, site not specified (principal); U07.1 COVID-19; I13.0 Hypertensive heart and chronic kidney disease with heart failure and stage 1 through stage 4 chronic kidney disease, or unspecified chronic kidney disease; R55 Syncope and collapse; E78.5 Hyperlipidemia, unspecified; E03.9 Hypothyroidism, unspecified; R33.9 Retention of urine, unspecified; N18.30 Chronic kidney disease, stage 3 unspecified; L89.151 Pressure ulcer of sacral region, stage 1; A49.8 Other bacterial infections of unspecified site; E11.65 Type 2 diabetes mellitus with hyperglycemia
CPT/HCPCS: 0241U-QW; 36415; 71045-TC-FY; 80048; 80053; 81003; 82803; 82962; 83605; 84443; 84484; 85025; 85027; 85651; 86140; 86850; 86900; 86901; 87040; 87086; 87186; 93005; 93010; 97162-GP; 99285-25; G0463-25; G0480; J0248

== ENCOUNTER 2023-08-01 18:00 | Observation (INO) | payer OTHER ==
[2023-08-01 18:26] VITALS: BMI 28.2
[2023-08-01] MEDS ORDERED: ACETAMINOPHEN 1000 MG/100 ML BAG IVPB ONE (18:38)
[2023-08-01] MEDS ORDERED: FAMOTIDINE 20 MG/50 ML IVPB 20 MG/50 ML MG IVPB ONE ×2 (18:43→19:07)
[2023-08-01] MEDS ORDERED: MAG HYDROX/AL HYDROX/SIMETH 30 ML UNIT-DOSE CUP PO ONE (18:43)
[2023-08-01] MEDS ORDERED: ACETAMINOPHEN INJECTION 100 ML IVPB ONE (19:07)
[2023-08-01 19:26] LABS: BASO % 0.4 % (0-2.0); EOS % 0.9 % (0-4.5); HEMATOCRIT 33.3 % (32.4-45.2); HEMOGLOBIN 10.7 GM/dL (10.7-15.3); LYMPH % 33.1 % (8-40); MCH 26.7 pg (25.7-33.7); MCHC 32.2 g/dl (32.0-36.0); MEAN CELL VOLUME 82.8 fl (80-96); MEAN PLT VOLUME 7.4 fl (7.5-11.1); MONO % 7.4 % (3.8-10.2); NEUT % 58.2 % (42.8-82.8); PLATELET COUNT 245 10^3/uL (134-434); RBC 4.02 M/mm3 (3.60-5.2); RDW 15.9 % (11.6-15.6); WHITE BLOOD COUNT 8.2 K/mm3 (4.0-10.0)
[2023-08-01 19:36] LABS: INR 0.9 (0.83-1.09); PROTHROMBIN TIME (PATIENT) 10.4 SEC (9.7-13.0)
[2023-08-01 19:39] LABS: ACTIVATED PTT 28.1 SECONDS (25.2-36.5); POTASSIUM 3.9 mmol/L (3.5-5.1)
[2023-08-01 19:41] LABS: ALBUMIN 2.7 g/dl (3.4-5.0); BLOOD UREA NITROGEN 31.4 mg/dL (7-18); CALCIUM 9.5 mg/dL (8.5-10.1)
[2023-08-01 19:44] LABS: CREATININE 1.6 mg/dL (0.55-1.3)
[2023-08-01 19:46] LABS: BILIRUBIN,TOTAL 0.2 mg/dL (0.2-1); TOT PROT 6.6 g/dl (6.4-8.2)
[2023-08-02] MEDS: CARVEDILOL 25 MG TABLET (FP) PO SCH ×3 (00:25→21:43)
[2023-08-02] MEDS ORDERED: ACETAMINOPHEN 325 MG TABLET (FP) ONE (01:40)
[2023-08-02] MEDS: ACETAMINOPHEN 325 MG TABLET (FP) PO PRN ×2 (01:42→21:52)
[2023-08-02] MEDS ORDERED: hydrALAZINE HCL 50 MG TABLET (FP) ONE (06:03)
[2023-08-02] MEDS ORDERED: LEVOTHYROXINE NA 25 MCG TABLET (FP) ONE (06:03)
[2023-08-02] MEDS: LEVOTHYROXINE NA 25 MCG TABLET (FP) PO SCH (06:05)
[2023-08-02] MEDS: hydrALAZINE HCL 50 MG TABLET (FP) PO SCH ×3 (06:05→21:43)
[2023-08-02 07:12] LABS: BASO % 0.6 % (0-2.0); EOS % 1.3 % (0-4.5); HEMATOCRIT 35.1 % (32.4-45.2); HEMOGLOBIN 11.3 GM/dL (10.7-15.3); LYMPH % 35.8 % (8-40); MCH 26.7 pg (25.7-33.7); MCHC 32.1 g/dl (32.0-36.0); MEAN CELL VOLUME 83.2 fl (80-96); MEAN PLT VOLUME 7.5 fl (7.5-11.1); MONO % 8.1 % (3.8-10.2); NEUT % 54.2 % (42.8-82.8); PLATELET COUNT 222 10^3/uL (134-434); RBC 4.22 M/mm3 (3.60-5.2); RDW 15.3 % (11.6-15.6); WHITE BLOOD COUNT 7.3 K/mm3 (4.0-10.0)
[2023-08-02 07:37] LABS: POTASSIUM 4.2 mmol/L (3.5-5.1)
[2023-08-02 07:42] LABS: BLOOD UREA NITROGEN 30.6 mg/dL (7-18); CALCIUM 9.8 mg/dL (8.5-10.1)
[2023-08-02 07:46] LABS: CREATININE 1.7 mg/dL (0.55-1.3)
[2023-08-02] MEDS: TAMSULOSIN HCL 0.4 MG CAP PO SCH (08:23)
[2023-08-02] MEDS: DULoxetine HCL 20 MG CAPSULE.DR PO SCH (09:48)
[2023-08-02] MEDS: cloNIDine HCL 0.1 MG TABLET PO SCH ×2 (09:48→21:43)
[2023-08-02] MEDS: TORSEMIDE 20 MG TABLET (FP) PO SCH (09:49)
[2023-08-02] MEDS: POTASSIUM CHLORIDE TABS 20 MEQ TABLET.ER (FP) PO SCH (09:49)
[2023-08-02] MEDS: SENNOSIDES 8.6MG TABLET (FP) PO SCH ×2 (09:49→21:43)
[2023-08-02] MEDS: INSULIN ASPART SLIDING SCALE (NOVOLOG) 1 VIAL SQ SCH ×2 (17:45→21:44)
[2023-08-02] MEDS: INSULIN (LEVEMIR) 100 UNITS/ML UNITS SQ SCH (21:43)
[2023-08-03] MEDS: hydrALAZINE HCL 50 MG TABLET (FP) PO SCH ×3 (06:09→21:15)
[2023-08-03] MEDS: LEVOTHYROXINE NA 25 MCG TABLET (FP) PO SCH (06:09)
[2023-08-03] MEDS: INSULIN ASPART SLIDING SCALE (NOVOLOG) 1 VIAL SQ SCH ×4 (06:09→21:14)
[2023-08-03 06:56] LABS: EPI CELLS 2 /uL (0-25.1); HYALINE CASTS 3 /uL (0-3.1); PH,URINE 6.5 (5.0-8.0); URINE APPEARANCE CLOUDY; URINE BACTERIA 692 /uL (0-1359); URINE BILIRUBIN NEGATIVE (NEGATIVE); URINE COLOR YELLOW; URINE GLUCOSE (UA) TRACE (NEGATIVE); URINE KETONE NEGATIVE (NEGATIVE); URINE LEUK ESTERASE 3+ (NEGATIVE); URINE NITRITE NEGATIVE (NEGATIVE); URINE PROTEIN 1+ (NEGATIVE); URINE RBC 11 /uL (0-23.9); URINE UROBILINOGEN 0.2 mg/dL (0.2-1.0); URINE WBC 946 /uL (0-25.8)
[2023-08-03 08:39] LABS: YEAST NEGATIVE (NEGATIVE)
[2023-08-03] MEDS: TAMSULOSIN HCL 0.4 MG CAP PO SCH (08:39)
[2023-08-03] MEDS: TORSEMIDE 20 MG TABLET (FP) PO SCH (09:19)
[2023-08-03] MEDS: CARVEDILOL 25 MG TABLET (FP) PO SCH ×2 (09:19→21:15)
[2023-08-03] MEDS: cloNIDine HCL 0.1 MG TABLET PO SCH ×2 (09:19→21:14)
[2023-08-03] MEDS: DULoxetine HCL 20 MG CAPSULE.DR PO SCH (09:19)
[2023-08-03] MEDS: ACETAMINOPHEN 325 MG TABLET (FP) PO PRN ×2 (09:19→21:15)
[2023-08-03] MEDS: POTASSIUM CHLORIDE TABS 20 MEQ TABLET.ER (FP) PO SCH (09:20)
[2023-08-03] MEDS: SENNOSIDES 8.6MG TABLET (FP) PO SCH ×2 (09:20→21:14)
[2023-08-03] MEDS: INSULIN (LEVEMIR) 100 UNITS/ML UNITS SQ SCH (21:14)
[2023-08-04] MEDS: hydrALAZINE HCL 50 MG TABLET (FP) PO SCH ×3 (06:26→22:00)
[2023-08-04] MEDS: ACETAMINOPHEN 325 MG TABLET (FP) PO PRN (06:26)
[2023-08-04] MEDS: LEVOTHYROXINE NA 25 MCG TABLET (FP) PO SCH (06:26)
[2023-08-04] MEDS: INSULIN ASPART SLIDING SCALE (NOVOLOG) 1 VIAL SQ SCH ×4 (06:46→22:14)
[2023-08-04 07:28] LABS: POTASSIUM 4.2 mmol/L (3.5-5.1)
[2023-08-04 07:29] LABS: CALCIUM 9.8 mg/dL (8.5-10.1)
[2023-08-04 07:30] LABS: ALBUMIN 2.7 g/dl (3.4-5.0); BLOOD UREA NITROGEN 31.6 mg/dL (7-18)
[2023-08-04 07:33] LABS: CREATININE 1.7 mg/dL (0.55-1.3)
[2023-08-04 07:35] LABS: BILIRUBIN,TOTAL 0.3 mg/dL (0.2-1); TOT PROT 6.4 g/dl (6.4-8.2)
[2023-08-04] MEDS: TAMSULOSIN HCL 0.4 MG CAP PO SCH (08:14)
[2023-08-04] MEDS: SENNOSIDES 8.6MG TABLET (FP) PO SCH ×2 (09:23→22:00)
[2023-08-04] MEDS: POTASSIUM CHLORIDE TABS 20 MEQ TABLET.ER (FP) PO SCH (09:23)
[2023-08-04] MEDS: VITAMIN B COMP W-C 1 EA TABLET (NEPHRO-VITE) PO SCH (09:23)
[2023-08-04] MEDS: CARVEDILOL 25 MG TABLET (FP) PO SCH ×2 (09:23→22:00)
[2023-08-04] MEDS: TORSEMIDE 20 MG TABLET (FP) PO SCH (09:23)
[2023-08-04] MEDS: DULoxetine HCL 20 MG CAPSULE.DR PO SCH (09:23)
[2023-08-04] MEDS: cloNIDine HCL 0.1 MG TABLET PO SCH ×2 (09:23→22:00)
[2023-08-04] MEDS ORDERED: PROPOFOL 1,000,000 MCG/100 ML VIAL ONE (18:30)
[2023-08-04] MEDS: INSULIN (LEVEMIR) 100 UNITS/ML UNITS SQ SCH (22:01)
[2023-08-05] MEDS: ACETAMINOPHEN 325 MG TABLET (FP) PO PRN ×2 (03:15→22:43)
[2023-08-05] MEDS: hydrALAZINE HCL 50 MG TABLET (FP) PO SCH ×3 (05:46→21:55)
[2023-08-05] MEDS: INSULIN ASPART SLIDING SCALE (NOVOLOG) 1 VIAL SQ SCH ×4 (06:04→22:39)
[2023-08-05] MEDS: LEVOTHYROXINE NA 25 MCG TABLET (FP) PO SCH (06:04)
[2023-08-05] MEDS: VITAMIN B COMP W-C 1 EA TABLET (NEPHRO-VITE) PO SCH (09:08)
[2023-08-05] MEDS: POTASSIUM CHLORIDE TABS 20 MEQ TABLET.ER (FP) PO SCH (09:08)
[2023-08-05] MEDS: CARVEDILOL 25 MG TABLET (FP) PO SCH ×2 (09:08→21:55)
[2023-08-05] MEDS: cloNIDine HCL 0.1 MG TABLET PO SCH ×2 (09:08→21:55)
[2023-08-05] MEDS: SENNOSIDES 8.6MG TABLET (FP) PO SCH ×2 (09:08→21:55)
[2023-08-05] MEDS: DULoxetine HCL 20 MG CAPSULE.DR PO SCH (09:08)
[2023-08-05] MEDS: TAMSULOSIN HCL 0.4 MG CAP PO SCH (09:08)
[2023-08-05] MEDS: TORSEMIDE 20 MG TABLET (FP) PO SCH (09:08)
[2023-08-05] MEDS: INSULIN (LEVEMIR) 100 UNITS/ML UNITS SQ SCH (21:56)
[2023-08-06] MEDS: hydrALAZINE HCL 50 MG TABLET (FP) PO SCH ×3 (05:49→21:52)
[2023-08-06] MEDS: LEVOTHYROXINE NA 25 MCG TABLET (FP) PO SCH (06:04)
[2023-08-06] MEDS: INSULIN ASPART SLIDING SCALE (NOVOLOG) 1 VIAL SQ SCH ×4 (06:09→21:54)
[2023-08-06 06:55] LABS: HEMATOCRIT 32.4 % (32.4-45.2); HEMOGLOBIN 10.5 GM/dL (10.7-15.3); MCH 27.3 pg (25.7-33.7); MCHC 32.5 g/dl (32.0-36.0); MEAN CELL VOLUME 83.8 fl (80-96); MEAN PLT VOLUME 7.5 fl (7.5-11.1); PLATELET COUNT 222 10^3/uL (134-434); RBC 3.87 M/mm3 (3.60-5.2); RDW 15.7 % (11.6-15.6); WHITE BLOOD COUNT 7.2 K/mm3 (4.0-10.0)
[2023-08-06 07:01] LABS: POTASSIUM 4.1 mmol/L (3.5-5.1)
[2023-08-06 07:04] LABS: ALBUMIN 2.6 g/dl (3.4-5.0); BLOOD UREA NITROGEN 33.2 mg/dL (7-18); CALCIUM 9.7 mg/dL (8.5-10.1)
[2023-08-06 07:07] LABS: CREATININE 1.6 mg/dL (0.55-1.3)
[2023-08-06 07:09] LABS: BILIRUBIN,TOTAL 0.3 mg/dL (0.2-1); TOT PROT 6.4 g/dl (6.4-8.2)
[2023-08-06] MEDS: TAMSULOSIN HCL 0.4 MG CAP PO SCH (08:59)
[2023-08-06] MEDS: CARVEDILOL 25 MG TABLET (FP) PO SCH ×2 (09:00→21:52)
[2023-08-06] MEDS: POTASSIUM CHLORIDE TABS 20 MEQ TABLET.ER (FP) PO SCH (09:00)
[2023-08-06] MEDS: VITAMIN B COMP W-C 1 EA TABLET (NEPHRO-VITE) PO SCH (09:00)
[2023-08-06] MEDS: TORSEMIDE 20 MG TABLET (FP) PO SCH (09:00)
[2023-08-06] MEDS: SENNOSIDES 8.6MG TABLET (FP) PO SCH ×2 (09:00→21:52)
[2023-08-06] MEDS: cloNIDine HCL 0.1 MG TABLET PO SCH ×2 (09:01→21:52)
[2023-08-06] MEDS: DULoxetine HCL 20 MG CAPSULE.DR PO SCH (09:01)
[2023-08-06] MEDS ORDERED: INSULIN (NOVOLOG) ASPART 100 UNITS/ML 10ML VIAL ONE (16:52)
[2023-08-06] MEDS: ACETAMINOPHEN 325 MG TABLET (FP) PO PRN (17:04)
[2023-08-06] MEDS: INSULIN (LEVEMIR) 100 UNITS/ML UNITS SQ SCH (21:52)
[2023-08-07] MEDS: INSULIN ASPART SLIDING SCALE (NOVOLOG) 1 VIAL SQ SCH ×3 (06:18→17:04)
[2023-08-07] MEDS: hydrALAZINE HCL 50 MG TABLET (FP) PO SCH ×2 (06:18→15:08)
[2023-08-07] MEDS: LEVOTHYROXINE NA 25 MCG TABLET (FP) PO SCH (06:18)
[2023-08-07] MEDS: TAMSULOSIN HCL 0.4 MG CAP PO SCH (08:48)
[2023-08-07] MEDS: DULoxetine HCL 20 MG CAPSULE.DR PO SCH (09:56)
[2023-08-07] MEDS: TORSEMIDE 20 MG TABLET (FP) PO SCH (09:57)
[2023-08-07] MEDS: VITAMIN B COMP W-C 1 EA TABLET (NEPHRO-VITE) PO SCH (09:57)
[2023-08-07] MEDS: cloNIDine HCL 0.1 MG TABLET PO SCH (09:57)
[2023-08-07] MEDS: POTASSIUM CHLORIDE TABS 20 MEQ TABLET.ER (FP) PO SCH (09:58)
[2023-08-07] MEDS: SENNOSIDES 8.6MG TABLET (FP) PO SCH (09:58)
[2023-08-07] MEDS ORDERED: ASPIRIN COATED 81 MG TABLET.EC PO SCH (10:00)
[2023-08-07] MEDS: CARVEDILOL 25 MG TABLET (FP) PO SCH (10:05)
[2023-08-07 18:04] VITALS: BP 151/74; PULSE 70; RESP 16; TEMP 97.5
== END 2023-08-07 19:15 ==
LOC: JER 18:00 → JERBED 19:12 → J2W 08-02 10:00
PROVIDERS: ADMIT Internal Medicine; ATTEND Family Medicine
PROC: 3E033NZ Introduction of Analgesics, Hypnotics, Sedatives into Peripheral Vein, Percutaneous Approach (ICD-10-PCS; principal; 2023-08-01)
PROC: 3E013VG Introduction of Insulin into Subcutaneous Tissue, Percutaneous Approach (ICD-10-PCS; 2023-08-01)
PROC: 3E023GC Introduction of Other Therapeutic Substance into Muscle, Percutaneous Approach (ICD-10-PCS; 2023-08-01)
PROC: 3E033NZ Introduction of Analgesics, Hypnotics, Sedatives into Peripheral Vein, Percutaneous Approach (ICD-10-PCS; 2023-08-01)
DX: J21.0 Acute bronchiolitis due to respiratory syncytial virus (principal); I12.9 Hypertensive chronic kidney disease with stage 1 through stage 4 chronic kidney disease, or unspecified chronic kidney disease; E11.22 Type 2 diabetes mellitus with diabetic chronic kidney disease; E78.5 Hyperlipidemia, unspecified; I25.10 Atherosclerotic heart disease of native coronary artery without angina pectoris; I11.0 Hypertensive heart disease with heart failure; Z87.891 Personal history of nicotine dependence; R01.1 Cardiac murmur, unspecified; R07.9 Chest pain, unspecified; R60.0 Localized edema
CPT/HCPCS: 0241U-QW; 36415; 71045-TC-FY; 80048; 80053; 81003; 82962; 83880; 84484; 85025; 85027; 85610; 85730; 93005; 93010; 96365; 96372; 96375; 97161-GP; 99285-25; G0378

== ENCOUNTER 2023-08-30 16:27 | Inpatient (IN) | payer OTHER ==
[2023-08-30 19:32] LABS: BASO % 0.5 % (0-2.0); EOS % 1.3 % (0-4.5); HEMATOCRIT 34.4 % (32.4-45.2); HEMOGLOBIN 11.2 GM/dL (10.7-15.3); LYMPH % 31.9 % (8-40); MCH 28.2 pg (25.7-33.7); MCHC 32.6 g/dl (32.0-36.0); MEAN CELL VOLUME 86.5 fl (80-96); NEUT % 60.3 % (42.8-82.8); PLATELET COUNT 226 10^3/uL (134-434); RBC 3.98 M/mm3 (3.60-5.2); WHITE BLOOD COUNT 9.6 K/mm3 (4.0-10.0)
[2023-08-30 19:49] LABS: INR 0.93 (0.83-1.09); PROTHROMBIN TIME (PATIENT) 10.8 SEC (9.7-13.0)
[2023-08-30 19:52] LABS: ACTIVATED PTT 28.8 SECONDS (25.2-36.5)
[2023-08-30 20:00] LABS: POTASSIUM 3.9 mmol/L (3.5-5.1)
[2023-08-30 20:02] LABS: ALBUMIN 3.3 g/dl (3.4-5.0); BLOOD UREA NITROGEN 35.8 mg/dL (7-18); CALCIUM 9.1 mg/dL (8.5-10.1)
[2023-08-30 20:05] LABS: CREATININE 1.9 mg/dL (0.55-1.3)
[2023-08-30 20:07] LABS: BILIRUBIN,TOTAL 0.2 mg/dL (0.2-1)
[2023-08-30] MEDS ORDERED: PIPERACILLIN/TAZOB 3.375 GM 3.375 GM/50 ML BAG IVPB ONE (20:10)
[2023-08-30] MEDS: PIPERACILLIN/TAZOB 4.5 GM 4.5 GM in DEXTROSE 5%-WATER 100 ML IVPB ONE (20:17)
[2023-08-30 20:46] LABS: ERYTHROCYTE SEDIMENTATION RATE 42 mm/hr (0-30)
[2023-08-30] MEDS: VANCOMYCIN 1,000 MG in DEXTROSE 5%-WATER - 250 ML IVPB ONE (22:05)
[2023-08-30] MEDS ORDERED: VANCOMYCIN 1 GRAM (PRE-DOCKED) 1,000 MG/250 ML BAG IVPB ONE (22:07)
[2023-08-30] MEDS: morphine CARPU-JECT 4 MG/1 ML DISP.SYRIN IVPUSH ONE (22:14)
[2023-08-30] MEDS ORDERED: morphine SULFATE 4 MG/ML VIAL ONE (22:17)
[2023-08-31] MEDS ORDERED: LORazepam 1 MG TABLET PO PRN (02:26)
[2023-08-31] MEDS: INSULIN ASPART SLIDING SCALE (NOVOLOG) 1 VIAL SQ SCH (02:43)
[2023-08-31] MEDS: HEPARIN NA (PORCINE) 5,000 UNITS/ML 1ML VIAL SQ SCH (02:43)
[2023-08-31] MEDS: PIPERACILLIN/TAZOB 4.5 GM 4.5 GM in DEXTROSE 5%-WATER 100 ML IVPB SCH ×2 (02:43→15:57)
[2023-08-31] MEDS ORDERED: PIPERACILLIN/TAZOB 4.5 GM 4.5 GM/100 ML BAG IVPB ONE ×2 (02:46→09:29)
[2023-08-31] MEDS ORDERED: HEPARIN NA (PORCINE) 5,000 UNITS/ML 1ML VIAL ONE (06:57)
[2023-08-31] MEDS ORDERED: INSULIN ASPART SLIDING SCALE (NOVOLOG) 1 VIAL SQ SCH (07:00)
[2023-08-31 07:40] LABS: BASO % 0.3 % (0-2.0); EOS % 1.7 % (0-4.5); HEMATOCRIT 30.6 % (32.4-45.2); HEMOGLOBIN 10.2 GM/dL (10.7-15.3); LYMPH % 29.5 % (8-40); MCH 28.6 pg (25.7-33.7); MCHC 33.2 g/dl (32.0-36.0); MEAN CELL VOLUME 86.1 fl (80-96); MONO % 6.6 % (3.8-10.2); NEUT % 61.9 % (42.8-82.8); PLATELET COUNT 212 10^3/uL (134-434); RBC 3.56 M/mm3 (3.60-5.2); RDW 15.8 % (11.6-15.6); WHITE BLOOD COUNT 10.1 K/mm3 (4.0-10.0)
[2023-08-31 07:52] LABS: POTASSIUM 3.9 mmol/L (3.5-5.1)
[2023-08-31 08:01] LABS: CALCIUM 9.3 mg/dL (8.5-10.1); MAGNESIUM 1.9 mg/dL (1.8-2.4)
[2023-08-31 08:03] LABS: CREATININE 1.8 mg/dL (0.55-1.3); PHOSPHOROUS 3.2 mg/dL (2.5-4.9)
[2023-08-31 08:04] LABS: TOT PROT 6.5 g/dl (6.4-8.2)
[2023-08-31 08:05] LABS: BILIRUBIN,TOTAL 0.4 mg/dL (0.2-1)
[2023-08-31] MEDS: ASPIRIN 81 MG CHEWABLE TABLETS PO SCH (09:39)
[2023-08-31] MEDS: TAMSULOSIN HCL 0.4 MG CAP PO SCH (09:39)
[2023-08-31] MEDS: SENNOSIDES 8.6MG TABLET (FP) PO SCH (09:40)
[2023-08-31] MEDS: cloNIDine HCL 0.1 MG TABLET PO SCH (09:40)
[2023-08-31] MEDS: DULoxetine HCL 30 MG CAPSULE.DR PO SCH (09:40)
[2023-08-31] MEDS: SOLIFENACIN SUCCINATE 5 MG TAB PO SCH (09:40)
[2023-08-31] MEDS: TORSEMIDE 20 MG TABLET (FP) PO SCH (09:40)
[2023-08-31] MEDS: CARVEDILOL 25 MG TABLET (FP) PO SCH (09:40)
[2023-08-31] MEDS: POLYETHYLENE GLYCOL (HEALTHYLAX) 3350 17 GM PACKET PO SCH (09:40)
[2023-08-31 16:11] VITALS: BMI 33.5
[2023-08-31] MEDS: CLOTRIMAZOLE/BETAMET DIPROP 15 GM TUBE TP SCH (16:22)
[2023-08-31] MEDS: SILVER SULFADIAZINE 1% TOP CREAM 400 GM JAR TP SCH (16:22)
[2023-08-31] MEDS ORDERED: INSULIN (NOVOLOG) ASPART 100 UNITS/ML 10ML VIAL ONE (17:00)
[2023-08-31] MEDS: PIPERACILLIN/TAZOB 2.25 GM 2.25 GM in DEXTROSE 5%-WATER - 50 ML IVPB SCH (18:00)
[2023-08-31 18:49] LABS: EPI CELLS 4 /uL (0-25.1); HYALINE CASTS 0 /uL (0-3.1); URINE APPEARANCE TURBID; URINE BACTERIA 530 /uL (0-1359); URINE BILIRUBIN NEGATIVE (NEGATIVE); URINE COLOR YELLOW; URINE GLUCOSE (UA) 1+ (NEGATIVE); URINE KETONE NEGATIVE (NEGATIVE); URINE LEUK ESTERASE 3+ (NEGATIVE); URINE NITRITE NEGATIVE (NEGATIVE); URINE PROTEIN 2+ (NEGATIVE); URINE RBC 47 /uL (0-23.9); URINE UROBILINOGEN 0.2 mg/dL (0.2-1.0); URINE WBC 6353 /uL (0-25.8)
[2023-08-31] MEDS ORDERED: VANCOMYCIN 1,000 MG in DEXTROSE 5%-WATER - 250 ML IVPB SCH (19:00)
[2023-08-31] MEDS: ATORVASTATIN CA 20 MG TABLET (FP) PO SCH (21:25)
[2023-08-31] MEDS: ACETAMINOPHEN 325 MG TABLET (FP) PO PRN (21:26)
[2023-08-31] MEDS ORDERED: VANCOMYCIN/WATER FOR INJ (PEG) 1,000 MG/200 ML BAG IVPB SCH (23:00)
[2023-09-01] MEDS: INSULIN (LEVEMIR) 100 UNITS/ML UNITS SQ SCH (06:49)
[2023-09-01] MEDS ORDERED: INSULIN (NOVOLOG) ASPART 100 UNITS/ML 10ML VIAL ONE ×2 (11:23→17:05)
[2023-09-03 07:53] LABS: BASO % 0.4 % (0-2.0); EOS % 1.8 % (0-4.5); HEMATOCRIT 30.9 % (32.4-45.2); HEMOGLOBIN 10.2 GM/dL (10.7-15.3); LYMPH % 41.5 % (8-40); MCH 28.2 pg (25.7-33.7); MCHC 32.9 g/dl (32.0-36.0); MEAN CELL VOLUME 85.6 fl (80-96); MONO % 5.2 % (3.8-10.2); NEUT % 51.1 % (42.8-82.8); PLATELET COUNT 188 10^3/uL (134-434); RBC 3.61 M/mm3 (3.60-5.2); RDW 15.5 % (11.6-15.6)
[2023-09-03] MEDS: IBUPROFEN 400 MG TABLET (FP) PO ONE (09:08)
[2023-09-03 14:41] VITALS: RESP 18
[2023-09-05] MEDS: INSULIN (LEVEMIR) 100 UNITS/ML UNITS SQ SCH (06:25)
[2023-09-05 09:26] LABS: POTASSIUM 3.9 mmol/L (3.5-5.1)
[2023-09-05 09:28] LABS: ALBUMIN 2.7 g/dl (3.4-5.0); BLOOD UREA NITROGEN 31.1 mg/dL (7-18); CALCIUM 9.5 mg/dL (8.5-10.1)
[2023-09-05 09:31] LABS: CREATININE 1.8 mg/dL (0.55-1.3)
[2023-09-05 09:33] LABS: BILIRUBIN,TOTAL 0.4 mg/dL (0.2-1); TOT PROT 6.4 g/dl (6.4-8.2)
[2023-09-05] MEDS ORDERED: INSULIN (NOVOLOG) ASPART 100 UNITS/ML 10ML VIAL ONE ×2 (12:35→20:04)
[2023-09-06] MEDS ORDERED: INSULIN (NOVOLOG) ASPART 100 UNITS/ML 10ML VIAL ONE ×2 (11:34→17:13)
[2023-09-06 11:49] VITALS: PULSE 63
[2023-09-06 15:18] VITALS: BP 151/62; TEMP 98.4
== END 2023-09-06 23:15 | DRG 603 ==
LOC: JER 16:27 → JERBED 20:54 → J8W 08-31 13:19
PROVIDERS: ADMIT Internal Medicine; ATTEND Internal Medicine
DX: L03.115 Cellulitis of right lower limb (principal); I13.0 Hypertensive heart and chronic kidney disease with heart failure and stage 1 through stage 4 chronic kidney disease, or unspecified chronic kidney disease; I25.10 Atherosclerotic heart disease of native coronary artery without angina pectoris; N18.9 Chronic kidney disease, unspecified; I50.9 Heart failure, unspecified; E78.5 Hyperlipidemia, unspecified; E11.22 Type 2 diabetes mellitus with diabetic chronic kidney disease; E03.9 Hypothyroidism, unspecified; Z86.16 Personal history of COVID-19; E66.9 Obesity, unspecified; Z79.4 Long term (current) use of insulin; E11.65 Type 2 diabetes mellitus with hyperglycemia; E11.40 Type 2 diabetes mellitus with diabetic neuropathy, unspecified; E87.6 Hypokalemia; Z68.33 Body mass index [BMI] 33.0-33.9, adult
CPT/HCPCS: 0241U-QW; 36415; 73590-TC-LT-FY; 73630-TC-RT-FY; 73718-TC-RT; 80053; 81003; 82962; 83735; 84100; 85025; 85610; 85651; 85730; 86140; 86850; 86900; 86901; 87040; 87086; 87635; 93005; 93010; 93926-TC; 97116-GP; 97161-GP; 99285-25; J1644

== ENCOUNTER 2023-11-14 02:18 | Inpatient (IN) | payer OTHER ==
[2023-11-14] MEDS: SODIUM CHLORIDE 0.9% 500 ML INFUS.BAG IV ONE ×4 (02:45→05:09)
[2023-11-14 02:57] LABS: BASO % 0.6 % (0-2.0); EOS % 0.4 % (0-4.5); HEMATOCRIT 35.3 % (32.4-45.2); HEMOGLOBIN 11.7 GM/dL (10.7-15.3); LYMPH % 26.8 % (8-40); MCH 28.8 pg (25.7-33.7); MCHC 33.1 g/dl (32.0-36.0); MEAN CELL VOLUME 86.9 fl (80-96); MEAN PLT VOLUME 7.8 fl (7.5-11.1); MONO % 7.3 % (3.8-10.2); NEUT % 64.9 % (42.8-82.8); PLATELET COUNT 236 10^3/uL (134-434); RBC 4.06 M/mm3 (3.60-5.2); RDW 13.3 % (11.6-15.6); WHITE BLOOD COUNT 13.7 K/mm3 (4.0-10.0)
[2023-11-14 03:04] LABS: INR 1.02 (0.83-1.09); PROTHROMBIN TIME (PATIENT) 11.5 SEC (9.7-13.0)
[2023-11-14 03:07] LABS: ACTIVATED PTT 33.6 SECONDS (25.2-36.5)
[2023-11-14 03:18] LABS: POTASSIUM 4.4 mmol/L (3.5-5.1)
[2023-11-14 03:18] LABS: VENOUS BASE EXCESS 2.6 mmol/L (-2-2); VENOUS PCO2 51.9 mmHg (38-52); VENOUS PH 7.367 (7.310-7.410)
[2023-11-14 03:20] LABS: CALCIUM 9.8 mg/dL (8.5-10.1)
[2023-11-14 03:21] LABS: ALBUMIN 2.6 g/dl (3.4-5.0); BLOOD UREA NITROGEN 36.6 mg/dL (7-18)
[2023-11-14 03:24] LABS: CREATININE 2.1 mg/dL (0.55-1.3)
[2023-11-14 03:26] LABS: BILIRUBIN,TOTAL 0.6 mg/dL (0.2-1); TOT PROT 6.6 g/dl (6.4-8.2)
[2023-11-14] MEDS ORDERED: PIPERACILLIN/TAZOB 4.5 GM 4.5 GM/100 ML BAG IVPB ONE (04:56)
[2023-11-14] MEDS: PIPERACILLIN/TAZOB 4.5 GM 4.5 GM in DEXTROSE 5%-WATER 100 ML IVPB ONE (05:00)
[2023-11-14 05:32] LABS: EPI CELLS 1 /uL (0-25.1); HYALINE CASTS 0 /uL (0-3.1); PH,URINE 5.5 (5.0-8.0); URINE APPEARANCE TURBID; URINE BACTERIA 5229 /uL (0-1359); URINE BILIRUBIN NEGATIVE (NEGATIVE); URINE COLOR YELLOW; URINE GLUCOSE (UA) NEGATIVE (NEGATIVE); URINE KETONE NEGATIVE (NEGATIVE); URINE LEUK ESTERASE 3+ (NEGATIVE); URINE NITRITE POSITIVE (NEGATIVE); URINE PROTEIN 1+ (NEGATIVE); URINE RBC 21 /uL (0-23.9); URINE UROBILINOGEN 0.2 mg/dL (0.2-1.0); URINE WBC 3744 /uL (0-25.8)
[2023-11-14] MEDS ORDERED: NOREPINEPHRINE BITARTRATE 4 MG/4 ML ML IV ONE (05:57)
[2023-11-14] MEDS: NOREPINEPHRINE BITARTRATE 4,000 MCG in DEXTROSE 5%-WATER - 496 ML IV SCH (06:08)
[2023-11-14] MEDS ORDERED: ONDANSETRON 4 MG/2 ML VIAL IVPUSH PRN (06:35)
[2023-11-14] MEDS ORDERED: VANCOMYCIN/WATER 1250 MG 1,250 MG/250 ML BAG IVPB SCH (07:00)
[2023-11-14] MEDS: POLYETHYLENE GLYCOL (HEALTHYLAX) 3350 17 GM PACKET PO SCH (09:58)
[2023-11-14] MEDS: ASPIRIN 81 MG CHEWABLE TABLETS PO SCH (09:58)
[2023-11-14] MEDS: VANCOMYCIN/WATER 1250 MG 1,250 MG/250 ML BAG IVPB SCH (09:58)
[2023-11-14] MEDS: MUPIROCIN 2% TOPICAL OINTMENT FOR DECOLONIZATION NS SCH (09:59)
[2023-11-14] MEDS: LACTATED RINGERS SOLUTION 1,000 ML/1,000 ML INFUS.BAG IV SCH (13:53)
[2023-11-14] MEDS: HEPARIN NA (PORCINE) 5,000 UNITS/ML 1ML VIAL SQ SCH (13:57)
[2023-11-14] MEDS ORDERED: PIPERACILLIN/TAZOB 2.25 GM 2.25 GM in DEXTROSE 5%-WATER - 50 ML IVPB SCH (14:15)
[2023-11-14] MEDS: PIPERACILLIN/TAZOB 4.5 GM 4.5 GM in DEXTROSE 5%-WATER 100 ML IVPB SCH (14:47)
[2023-11-14] MEDS: PIPERACILLIN/TAZOB 2.25 GM 2.25 GM in DEXTROSE 5%-WATER - 50 ML IVPB SCH ×2 (15:57→18:46)
[2023-11-14] MEDS: ATORVASTATIN CA 20 MG TABLET (FP) PO SCH (21:27)
[2023-11-14] MEDS: CHLORHEXIDINE GLUCONATE 4% CLEANSER FOR DECOLONIZATION TP SCH (21:27)
[2023-11-15] MEDS: ACETAMINOPHEN 325 MG TABLET (FP) PO PRN (01:34)
[2023-11-15 07:33] LABS: BASO % 0.4 % (0-2.0); EOS % 2.7 % (0-4.5); HEMATOCRIT 30.4 % (32.4-45.2); HEMOGLOBIN 10.1 GM/dL (10.7-15.3); LYMPH % 25.9 % (8-40); MCH 29.2 pg (25.7-33.7); MCHC 33.2 g/dl (32.0-36.0); MEAN CELL VOLUME 88.1 fl (80-96); MONO % 8.3 % (3.8-10.2); NEUT % 62.7 % (42.8-82.8); PLATELET COUNT 165 10^3/uL (134-434); RBC 3.46 M/mm3 (3.60-5.2); RDW 13.5 % (11.6-15.6); WHITE BLOOD COUNT 8.5 K/mm3 (4.0-10.0)
[2023-11-15 07:35] LABS: POTASSIUM 3.7 mmol/L (3.5-5.1)
[2023-11-15 07:43] LABS: CALCIUM 8.7 mg/dL (8.5-10.1)
[2023-11-15 07:44] LABS: BLOOD UREA NITROGEN 26.5 mg/dL (7-18)
[2023-11-15 07:45] LABS: ALBUMIN 2.1 g/dl (3.4-5.0)
[2023-11-15 07:47] LABS: CREATININE 1.7 mg/dL (0.55-1.3)
[2023-11-15 07:48] LABS: PHOSPHOROUS 2.6 mg/dL (2.5-4.9)
[2023-11-15 07:49] LABS: BILIRUBIN,TOTAL 0.4 mg/dL (0.2-1); TOT PROT 5.4 g/dl (6.4-8.2)
[2023-11-15] MEDS ORDERED: LORazepam 1 MG TABLET PO PRN (08:46)
[2023-11-15] MEDS: DULoxetine HCL 30 MG CAPSULE.DR PO SCH (09:51)
[2023-11-15] MEDS ORDERED: ASPIRIN 81 MG CHEWABLE TABLETS PO SCH (10:00)
[2023-11-15] MEDS: cloNIDine HCL 0.1 MG TABLET PO SCH ×2 (12:12→21:48)
[2023-11-15] MEDS: CARVEDILOL 25 MG TABLET (FP) PO SCH ×2 (12:12→21:48)
[2023-11-15] MEDS: PIPERACILLIN/TAZOB 2.25 GM 2.25 GM in DEXTROSE 5%-WATER - 50 ML IVPB SCH (14:27)
[2023-11-15] MEDS ORDERED: ONDANSETRON 4 MG/2 ML VIAL IVPUSH PRN (15:33)
[2023-11-15] MEDS: INSULIN ASPART SLIDING SCALE (NOVOLOG) 1 VIAL SQ SCH (17:35)
[2023-11-15] MEDS: POLYETHYLENE GLYCOL (HEALTHYLAX) 3350 17 GM PACKET PO SCH (21:45)
[2023-11-15] MEDS: ATORVASTATIN CA 20 MG TABLET (FP) PO SCH (21:46)
[2023-11-15] MEDS: HEPARIN NA (PORCINE) 5,000 UNITS/ML 1ML VIAL SQ SCH (21:49)
[2023-11-15] MEDS: MUPIROCIN 2% TOPICAL OINTMENT FOR DECOLONIZATION NS SCH (23:35)
[2023-11-15] MEDS: CHLORHEXIDINE GLUCONATE 4% CLEANSER FOR DECOLONIZATION TP SCH (23:36)
[2023-11-16] MEDS ORDERED: TAMSULOSIN HCL 0.4 MG CAP PO SCH (08:30)
[2023-11-16 08:32] LABS: BASO % 0.3 % (0-2.0); EOS % 3.3 % (0-4.5); HEMATOCRIT 29.3 % (32.4-45.2); HEMOGLOBIN 10.1 GM/dL (10.7-15.3); LYMPH % 30.5 % (8-40); MCH 29.7 pg (25.7-33.7); MCHC 34.3 g/dl (32.0-36.0); MEAN CELL VOLUME 86.5 fl (80-96); MEAN PLT VOLUME 7.8 fl (7.5-11.1); MONO % 8.3 % (3.8-10.2); NEUT % 57.6 % (42.8-82.8); PLATELET COUNT 169 10^3/uL (134-434); RBC 3.39 M/mm3 (3.60-5.2); RDW 13.5 % (11.6-15.6); WHITE BLOOD COUNT 7.3 K/mm3 (4.0-10.0)
[2023-11-16 08:34] LABS: POTASSIUM 3.9 mmol/L (3.5-5.1)
[2023-11-16 08:47] LABS: CALCIUM 9.1 mg/dL (8.5-10.1)
[2023-11-16 08:48] LABS: ALBUMIN 2.2 g/dl (3.4-5.0); BLOOD UREA NITROGEN 18.7 mg/dL (7-18)
[2023-11-16 08:50] LABS: CREATININE 1.6 mg/dL (0.55-1.3); PHOSPHOROUS 2.2 mg/dL (2.5-4.9)
[2023-11-16 08:52] LABS: BILIRUBIN,TOTAL 0.4 mg/dL (0.2-1); TOT PROT 5.8 g/dl (6.4-8.2)
[2023-11-16 08:53] LABS: MAGNESIUM 2.1 mg/dL (1.8-2.4)
[2023-11-16] MEDS: TAMSULOSIN HCL 0.4 MG CAP PO SCH (10:06)
[2023-11-16] MEDS: DULoxetine HCL 30 MG CAPSULE.DR PO SCH (10:07)
[2023-11-16] MEDS: ASPIRIN 81 MG CHEWABLE TABLETS PO SCH (10:07)
[2023-11-16] MEDS: CEFTRIAXONE 1 GM in DEXTROSE 5%-WATER - 50 ML IVPB SCH (13:55)
[2023-11-16] MEDS: LACTATED RINGERS SOLUTION 1,000 ML/1,000 ML INFUS.BAG IV SCH (13:56)
[2023-11-16 14:38] VITALS: RESP 18
[2023-11-16 15:00] VITALS: BMI 31.6
[2023-11-16] MEDS: VITAMIN B COMP W-C 1 EA TABLET (NEPHRO-VITE) PO SCH (16:01)
[2023-11-16] MEDS: ACETAMINOPHEN 325 MG TABLET (FP) PO PRN (20:14)
[2023-11-16] MEDS: LORazepam 1 MG TABLET PO PRN (22:17)
[2023-11-17 07:06] VITALS: BP 145/56
[2023-11-17 11:13] VITALS: PULSE 68; TEMP 97.7
== END 2023-11-17 16:20 | DRG 871 ==
LOC: JER 02:18 → JERBED 05:46 → JICU 06:59 → J5S 11-15 15:37
PROVIDERS: ADMIT Family Medicine; ATTEND Family Medicine
DX: A41.51 Sepsis due to Escherichia coli [E. coli] (principal); G93.41 Metabolic encephalopathy; R65.21 Severe sepsis with septic shock; N39.0 Urinary tract infection, site not specified; N18.4 Chronic kidney disease, stage 4 (severe); N17.9 Acute kidney failure, unspecified; I13.0 Hypertensive heart and chronic kidney disease with heart failure and stage 1 through stage 4 chronic kidney disease, or unspecified chronic kidney disease; I50.32 Chronic diastolic (congestive) heart failure; L89.152 Pressure ulcer of sacral region, stage 2; E78.5 Hyperlipidemia, unspecified; E03.9 Hypothyroidism, unspecified; E11.22 Type 2 diabetes mellitus with diabetic chronic kidney disease; I25.10 Atherosclerotic heart disease of native coronary artery without angina pectoris; E66.9 Obesity, unspecified; Z68.31 Body mass index [BMI] 31.0-31.9, adult
CPT/HCPCS: 0241U-QW; 36415; 71045-TC-FY; 74176-TC; 80053; 81003; 82308; 82550; 82803; 82962; 83036; 83605; 83690; 83735; 83880; 84100; 84443; 84484; 85025; 85610; 85730; 86140; 87040; 87086; 87186; 87635; 93005; 93010; 93306-TC; 99285-25; J1644